=== PATIENT | female | born 1950 | race African-American/Black ===

== ENCOUNTER → 2016-05-24 | Outpatient (CLI) | payer OTHER ==
[~2016-05-24] MED LIST: ALBUTEROL2.5 MG/3 M INH; AMITRIPTYLINE H25 M2 PO; ASPIRIN81 M2 PO; CYMBALTA60 MG PO; HYDRALAZINE HC100 MG PO; JENTADUETO 2.51 EACH PO; LANTUS SOL100 UNIT/1 SQ; LASIX 40 MG TAB40 M2 PO; LIPITOR40 MG PO; LISINOPRIL40 MG PO; NEURONTIN 300300 M1 PO; SYMBICORT160 MCG/4. INH; VENTOLIN HFA 1818 GM INH; VICTOZA0.6 MG/0.1 SUBQ
== END ==
LOC: CAT 05-13 14:38
DX: J84.10 Pulmonary fibrosis, unspecified (principal); R91.1 Solitary pulmonary nodule

== ENCOUNTER → 2016-09-18 | Outpatient (CLI) | payer OTHER | LOC: HYPER 07:05 | DX: E11.622 Type 2 diabetes mellitus with other skin ulcer (principal); L97.811 Non-pressure chronic ulcer of other part of right lower leg limited to breakdown of skin; I87.311 Chronic venous hypertension (idiopathic) with ulcer of right lower extremity; I25.10 Atherosclerotic heart disease of native coronary artery without angina pectoris; E11.319 Type 2 diabetes mellitus with unspecified diabetic retinopathy without macular edema; J45.909 Unspecified asthma, uncomplicated; I11.0 Hypertensive heart disease with heart failure; I50.9 Heart failure, unspecified; E78.5 Hyperlipidemia, unspecified; I25.2 Old myocardial infarction; F32.9 Major depressive disorder, single episode, unspecified; F41.9 Anxiety disorder, unspecified; E11.51 Type 2 diabetes mellitus with diabetic peripheral angiopathy without gangrene; Z87.891 Personal history of nicotine dependence; Z72.89 Other problems related to lifestyle; Z95.1 Presence of aortocoronary bypass graft ==

== ENCOUNTER → 2016-10-17 | Outpatient (CLI) | payer OTHER | LOC: HYPER 07:00 | DX: E11.622 Type 2 diabetes mellitus with other skin ulcer (principal); I87.311 Chronic venous hypertension (idiopathic) with ulcer of right lower extremity; L97.811 Non-pressure chronic ulcer of other part of right lower leg limited to breakdown of skin; I25.10 Atherosclerotic heart disease of native coronary artery without angina pectoris; I11.0 Hypertensive heart disease with heart failure; I50.9 Heart failure, unspecified; J45.909 Unspecified asthma, uncomplicated; E78.5 Hyperlipidemia, unspecified; I25.2 Old myocardial infarction; E11.51 Type 2 diabetes mellitus with diabetic peripheral angiopathy without gangrene; Z95.1 Presence of aortocoronary bypass graft; Z87.891 Personal history of nicotine dependence; Z72.89 Other problems related to lifestyle ==

== ENCOUNTER 2017-04-13 08:36 | Emergency (ER) | payer OTHER ==
[~2017-04-13] VITALS: Ht 180.3 cm; Wt 113.4 kg
--- NOTE | ~2017-04-13 | EKG ---
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: [facility] : 1950 Requested By: Derek Holloway Order Number: [id number] MD: Jose L Miramontes Measurements Intervals [place] Rate: 65 P: -4 VA: 146 QRS: -7 QRSD: 108 T: 73 QT: 461 QTc: 480 Interpretive Statements Sinus rhythm Incomplete left bundle branch block Compared to ECG 12/28/2016 11:38:44 Left bundle-branch block now present T-wave abnormality no longer present Electronically Signed On 04-13-2017 10:25:57 CELL MAKER by Jose L Miramontes [email or web address] <ELECTRONICALLY SIGNED> By: Jose L Miramontes MD 04/13/17 1025 5 5 Jose L Miramontes MD /[facility]
[~2017-04-13 08:36] MED LIST changes: +LOPRESSOR50 PO; +NORCO 5-325 TA1 EACH PO
[2017-04-13 09:18] LABS: ABSOLUTE NEUTROPHILS 2.3 thou/uL (1.4-8.2); BASOPHILS 1.1 % (0.0-2.0); EOSINOPHILS 4.6 % (0.0-3.0); HEMATOCRIT 36.8 % (37.0-47.0); HEMOGLOBIN 12.2 gm/dL (12.0-15.0); LYMPHOCYTES 38.2 % (24.0-44.0); MCH 28.1 pg (26.0-34.0); MCHC 33.1 g/dL (28.0-37.0); MCV 84.7 fL (80.0-100.0); MONOCYTES 10.5 % (1.0-8.0); PLATELET COUNT 226 thou/uL (150-400); POLYS 45.6 % (36.0-66.0); RBC 4.34 mil/uL (4.20-5.00); RDW 14.1 % (10.5-14.5)
[2017-04-13 09:27] LABS: CALCIUM 9.1 mg/dL (8.5-10.1); CREATININE 1.1 mg/dL (0.6-1.0); POTASSIUM 4.6 mmol/L (3.5-5.1)
[2017-04-13 11:03] LABS: URINE BILIRUBIN NEGATIVE (Negative); URINE BLOOD 1+ (Negative); URINE CLARITY CLEAR; URINE COLOR YELLOW; URINE GLUCOSE-RANDOM* NEGATIVE (Negative); URINE KETONES NEGATIVE (Negative); URINE LEUKOCYTES-REFLEX NEGATIVE (Negative); URINE NITRITE-REFLEX NEGATIVE (Negative); URINE PROTEIN (DIPSTICK) 2+ (Negative); URINE UROBILINOGEN 0.2 E.U./dl (0.2-1.0)
[2017-04-13] MEDS ORDERED: OSELB75 PO (11:13)
[2017-04-13] MEDS ORDERED: PROMETHAZINE/C118 ML PO (11:13)
[2017-04-13 11:26] LABS: CASTS None Seen /LPF (None Seen); CRYSTALS None Seen /LPF (None Seen); SQUAMOUS 0-3 Few /LPF (0-3); URINE RBC 0-2 Rare /HPF (0-2); URINE WBC-REFLEX 0-5 Rare /HPF (0-5)
[2017-04-13 11:27] LABS: BACTERIA-REFLEX 1-9 Few /HPF (None Seen)
[2017-04-13 11:41] VITALS: BP 159/74
== END 2017-04-13 11:43 | disposition home or self-care (01) ==
LOC: ER 08:36
PROVIDERS: Emergency Medicine
DX: J11.1 Influenza due to unidentified influenza virus with other respiratory manifestations (principal); I10 Essential (primary) hypertension; E11.9 Type 2 diabetes mellitus without complications; E78.5 Hyperlipidemia, unspecified; J45.909 Unspecified asthma, uncomplicated; I25.2 Old myocardial infarction; Z88.0 Allergy status to penicillin

== ENCOUNTER 2018-02-04 17:34 | Inpatient (IN) | payer OTHER ==
[~2018-02-04] VITALS: Ht 177.8 cm; Wt 104.3 kg
--- NOTE | ~2018-02-04 | HC ---
[facility] [address] CONSULTATION Name: KILEYJUSTUS D Room #: 456-[facility] IN ..#: [id number] Admission: 02/04/18 Attend Phys: Daniel Huizar MD Discharge: Date of : 54 Report #: [id number] THIS REPORT FOR: //name// CC: Gavin Huizar DATE OF SERVICE: 02/05/2018 INFECTIOUS DISEASE CONSULTATION REASON FOR CONSULTATION: Febrile illness, PENICILLIN allergy, group A streptococcal infection. HISTORY OF PRESENT ILLNESS: A 67-year-old woman admitted through the Emergency Room with cough and upper airway congestion, epistaxis, lethargy and low grade fevers as well as joint aches and pains. Family members in the household affected with similar symptoms. Her initial workup revealed negative rapid influenza A and B positive group A streptococcal on pharyngeal swab. PAST MEDICAL HISTORY 1. Myocardial infarction. 2. Coronary artery bypass grafting. 3. Hypertension. 4. Diabetes mellitus. 5. Peripheral neuropathy. 6. Bronchial asthma. 7. Depression. DRUG ALLERGIES: PENICILLIN. MEDICATIONS: The patient is currently on treatment with p.r.n. ondansetron, acetaminophen, amitriptyline, Lactobacillus acidophilus, metoprolol, atorvastatin, insulin glargine, duloxetine, clindamycin 300 mg p.o. t.i.d., gabapentin, hydralazine, p.r.n. glucose glucagon and Tamiflu. She is also on insulin lispro per sliding scale. SOCIAL HISTORY: See H and P, old records. FAMILY HISTORY: See H and P, old records. REVIEW OF SYSTEMS: As above, and see H and P and Emergency Room records. PHYSICAL EXAMINATION: GENERAL: Well developed, not toxic looking woman. VITAL SIGNS: Temperature of 102.1 on 02/04/2018 down to 98.3 today, pulse 102 [facility] [address] [place] [address] CONSULTATION Name: JUSTUS CAO Room #: 456-P [facility] IN [facility]#: [id number] Admission: 02/04/18 Attend Phys: Daniel Huizar MD Discharge: Date of : 54 Report #: [id number] on admission, down to 88 today; respirations 21, BP 125/68. Height 5 feet 10 inches, weight 230 pounds. HEENMT: Pupils reactive. Conjunctivae normal. Pharynx revealed no exudates and follicular hyperplasia. Mouth: Good hygiene oral dentition. NECK: Supple, with no polyp or adenopathy. No tender adenopathy, though she relates it was tender before. Obviously, she is having sore throat. LUNGS: Clear to auscultation. HEART: S1, S2. No gallop or murmur. ABDOMEN: Soft, no masses or megaly. PELVIC AND RECTAL: Deferred. EXTREMITIES: Normal. LABORATORY DATA: On admission, BUN 28, creatinine 1.6, the creatinine dropped to 1.4 today and the BUN edi to 42. On admission, the glucose was 420 and 92 today. Alkaline phosphatase elevated at 199 u/mL. Albumin low at 2.3 mg/dL. I ordered a CRP, this is significantly elevated at 195 mg/dL. WBC 11,200 on admission, dropped to 7000 today, hemoglobin 13.5 on admission, dropped to 11.6 today. ESR 80. I ordered an upper viral respiratory panel by PCR. This is pending at the time of this dictation. Urinalysis revealed some microscopic hematuria, glycosuria and ketonuria. The arterial blood gases reveal hypoxemia with pO2 of 56 on room air. The O2 saturation is 89.8%. MICROBIOLOGY DATA: Blood cultures negative. Rapid strep group A positive and upper respiratory swab for influenza A and B negative. RADIOLOGY EVALUATION: A CT scan of the abdomen and pelvis revealed questionable nonobstructive kidney stone, otherwise negative. ASSESSMENT: 1. Influenza like syndrome. 2. Positive antigen for group A Streptococcus, question significance, suspect colonization. 3. PENICILLIN allergy. 4. Remote history of coronary artery bypass grafting. 5. Diabetes mellitus. 6. Chronic kidney disease. 7. Hypoxemia, possibly secondary to history of bronchial asthma, question underlying chronic obstructive pulmonary disease unlikely. RECOMMENDATIONS: We will continue Cleocin 300 mg p.o. t.i.d., though I doubt the patient has streptococcal pharyngitis. Most likely, she has an influenza-like viral upper respiratory infection and I will start Tamiflu 75 mg p.o. daily. The patient may be discharged at Dr. Huizar's timing. [address] [address] CONSULTATION Name: KILEYJUSTUS D Room #: 456-P [facility] IN [facility]#: [id number] Admission: 02/04/18 Attend Phys: Daniel Huizar MD Discharge: Date of : 54 Report #: [id number] Huizar, thank you for requesting my suggestions. By: [id number] Bishop Miramontes MD /ez
--- NOTE | ~2018-02-04 | EKG ---
[address] [address] ELECTROCARDIOGRAM REPORT Name: KILEYJUSTUS D Room #: 456-P ADM IN M.R.#: [id number] Admission: 02/04/18 Attend Phys: Daniel Huizar MD Discharge: Date of : 54 Report #: [id number] THIS REPORT FOR: //name// [facility] ED Test Date: 2018-02-04 Test Time: 18:26:21 Pat Name: JUSTUS CAO Department: Room: [facility] Gender: F Song Writer: JUAN PABLO : 1950 Requested By: Maude Mendoza Order Number: [id number] MD: Jose L Miramontes Measurements Intervals [place] Rate: 99 P: 1 MT: 132 QRS: 8 QRSD: 97 T: 227 QT: 327 QTc: 420 Interpretive Statements Sinus rhythm Compared to ECG 04/13/2017 09:26:39 Left bundle-branch block no longer present Electronically Signed On 02-06-2018 15:04:44 FIVE PIECE EXPANSION MAKER HAND by JoseL Miramontes [email or web address] <ELECTRONICALLY SIGNED> By: Jose L Miramontes MD 02/06/18 1504 25 25 Jose L Miramontes MD /[place]
--- NOTE | ~2018-02-04 | 2DMMODE ---
[facility] [place] [facility] [address] [place] [address] 2 D/M-MODE ECHOCARDIOGRAM Name: KILEYANDERSONJUSTUS D Room #: 456-P [facility] IN ..#: [id number] Admission: 02/04/18 Attend Phys: Daniel Huizar, Discharge: Date of : 54 Date of Service: 02/05/18 1448 Report #: [id number] THIS REPORT FOR: //name// APPROVED REPORT Study performed: 02/05/2018 14:04:08 EXAM: Comprehensive 2D, Doppler, and color-flow Echocardiogram Patient Location: Echo lab Room #: [facility] Status: routine BSA: 2.21 HR: 75 bpm BP: 107/61 mmHg Rhythm: NSR Other Information Study Quality: Adequate Indications Short of breath, chest pains. Hx: MO's CABG, stents, DM, HTN. 2D Dimensions RVDd: 36.39 mm IVSd: 11.17 (7-11mm) LVOT Diam: 21.25 (18-24mm) LVDd: 53.44 mm PWd: 11.07 (7-11mm) Ascending Ao: 34.48 (22-36mm) LVDs: 39.63 (25-40mm) Aortic Root: 34.59 mm Volumes Left Atrial Volume (Systole) Single Plane 4CH: 35.29 mL Single Plane 2CH: 46.70 mL LA ESV Index: 21.00 mL/m2 Aortic Valve AoV Peak Doroteo.: 1.28 m/s AO Peak Gr.: 6.51 mmHg LVOT Max P.96 mmHg LVOT Max V: 1.00 m/s VINEET Vmax: 2.77 cm2 Mitral Valve E/A Ratio: 0.8 MV Decel. Time: 251.25 ms MV E Max Doroteo.: 0.61 m/s [facility] [place] [facility] [employer] [place] [address] 2 D/M-MODE ECHOCARDIOGRAM Name: JUSTUS CAO Room #: 456-P [facility] IN .R.#: [id number] Admission: 02/04/18 Attend Phys: Daniel Huizar, Discharge: Date of : 54 Date of Service: 02/05/18 1448 Report #: [id number] MV A Doroteo.: 0.80 m/s MV PHT: 72.86 ms IVRT: 96.89 ms Pulmonary Valve PV Peak Doroteo.: 0.88 m/s PV Peak Gr.: 3.09 mmHg Pulmonary Vein P Vein S: 0.52 m/s P Vein A: 0.38 m/s P Vein D: 0.39 m/s P Vein A Dur.: 110.7 msec P Vein S/D Ratio: 1.33 Tricuspid Valve TR Peak Doroteo.: 2.15 m/s RAP Estimate: 5.00 mmHg TR Peak Gr.: 18.43 mmHg PA Pressure: 23.00 mmHg Left Ventricle The left ventricle is normal size. There is normal LV segmental wall motion. There is normal left ventricular wall thickness. Left ventricular systolic function is normal. LVEF is 55-60%. Mild diastolic dysfunction is present (impaired relaxation pattern). Right Ventricle The right ventricle is normal size. The right ventricular systolic function is normal. Atria The left atrium size is normal. The right atrium size is normal. Aortic Valve Aortic valve leaflets are mildly thickened with a focal calcified area, cannot exclude vegetation although degenerative changes likely. clinical correlation suggested Trace aortic regurgitation. There is no aortic valvular stenosis. Mitral Valve The mitral valve is normal in structure. Mild mitral annular calcification. Trace to mild mitral regurgitation. Tricuspid Valve The tricuspid valve is normal in structure. Trace tricuspid regurgitation. Estimated PAP is 20-25mmHg. [place] [address] [place] [address] 2 D/M-MODE ECHOCARDIOGRAM Name: JUSTUS CAO Room #: 456-P [facility] IN [facility]#: [id number] Admission: 02/04/18 Attend Phys: Daniel Huizar, Discharge: Date of : 54 Date of Service: 02/05/18 1448 Report #: [id number] Pulmonic Valve The pulmonary valve is normal in structure. Mild pulmonic regurgitation. Great Vessels The aortic root is normal in size. The ascending aorta is normal in size. IVC is normal in size and collapses >50% with inspiration. Pericardium There is no pericardial effusion. <Conclusion> The left ventricle is normal size. LVEF is 55-60%. Aortic valve leaflets are mildly thickened with a focal calcified area, cannot exclude vegetation although degenerative changes likely. clinical correlation suggested Trace aortic regurgitation. The mitral valve is normal in structure. Mild mitral annular calcification. Trace to mild mitral regurgitation. The tricuspid valve is normal in structure. Trace tricuspid regurgitation. Estimated PAP is 20-25mmHg. The pulmonary valve is normal in structure. Mild pulmonic regurgitation. There is no pericardial effusion. <ELECTRONICALLY SIGNED> By: Nathen Gonzalez MD 02/05/18 1448 1448 1448 Nathen Gonzalez MD /INF
--- NOTE | ~2018-02-04 | EKG ---
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 : 1950 Requested By: Maude Mendoza Order Number: [id number] MD: Jose L Miramontes Measurements Intervals [place] Rate: 95 P: 1 WA: 134 QRS: 1 QRSD: 102 T: 32 QT: 406 QTc: 511 Interpretive Statements Sinus rhythm Borderline repolarization abnormality Compared to ECG 04/13/2017 09:26:39 Left bundle-branch block no longer present Electronically Signed On 02-06-2018 15:06:11 AIRCRAFT DESIGNER by Jose L Miramontes [email or web address] <ELECTRONICALLY SIGNED> By: Jose L Miramontes MD 02/06/18 1506 23 23 Jose L Miramontes MD /[facility]
[~2018-02-04 17:34] MED LIST changes: +OSELB75 PO; +PROMETHAZINE/C118 ML PO
[2018-02-04 17:37] VITALS: BP 129/77
[2018-02-04 18:29] LABS: BE(vivo) 0.2 mmol/L (-2 to +3); HCO3 24.5 mmol/L (22.0-26.0); PCO2 38.8 mmHg (35.0-45.0); PO2 56.1 mmHg (80.0-100.0); pH 7.419 (7.360-7.450); sO2 89.8 % (92.0-98.0)
[2018-02-04 18:46] LABS: ABSOLUTE NEUTROPHILS 9.5 thou/uL (1.4-8.2); BASOPHILS 0.8 % (0.0-2.0); EOSINOPHILS 0.5 % (0.0-3.0); HEMATOCRIT 39.3 % (37.0-47.0); HEMOGLOBIN 13.5 gm/dL (12.0-15.0); LYMPHOCYTES 7.4 % (24.0-44.0); MCH 28.5 pg (26.0-34.0); MCHC 34.3 g/dL (28.0-37.0); MCV 83.1 fL (80.0-100.0); MONOCYTES 6.4 % (1.0-8.0); PLATELET COUNT 217 thou/uL (150-400); POLYS 84.9 % (36.0-66.0); RBC 4.73 mil/uL (4.20-5.00); RDW 13.2 % (10.5-14.5); WBC 11.2 thou/uL (4.0-11.0)
[2018-02-04 19:04] LABS: ANION GAP 11 mmol/L (7-16); BUN 28 mg/dL (7-18); CALCIUM 9.1 mg/dL (8.5-10.1); CHLORIDE 95 mmol/L (98-107); CO2 25 mmol/L (21-32); CREATININE 1.6 mg/dL (0.6-1.0); GLUCOSE 420 mg/dL (74-106); POTASSIUM 5.2 mmol/L (3.5-5.1); SODIUM 131 mmol/L (136-145)
[2018-02-04 19:09] LABS: ALBUMIN 2.3 g/dL (3.4-5.0); SGOT 41 U/L (15-37); SGPT 33 U/L (30-65); TOTAL BILIRUBIN 0.6 mg/dL (<0.1-1.0); TOTAL PROTEIN 7.6 g/dL (6.4-8.2); TROPONIN-I <0.06 ng/mL (<0.06)
[2018-02-04 20:17] LABS: ICTOTEST (BILI CONFIRMATORY) Negative (Negative); URINE BILIRUBIN NEGATIVE (Negative); URINE BLOOD 3+ (Negative); URINE CLARITY CLEAR; URINE COLOR YELLOW; URINE GLUCOSE-RANDOM* 3+ (Negative); URINE KETONES 1+ (Negative); URINE LEUKOCYTES-REFLEX NEGATIVE (Negative); URINE NITRITE-REFLEX NEGATIVE (Negative); URINE PROTEIN (DIPSTICK) 3+ (Negative); URINE SPECIFIC GRAVITY > 1.030 (1.005-1.035); URINE UROBILINOGEN 0.2 E.U./dl (0.2-1.0)
[2018-02-04 20:25] LABS: BACTERIA-REFLEX 1-9 Few /HPF (None Seen); CASTS None Seen /LPF (None Seen); CRYSTALS None Seen /LPF (None Seen); SQUAMOUS 0-3 Few /LPF (0-3); URINE RBC 3-10 Few /HPF (0-2)
[2018-02-04 20:26] LABS: URINE WBC-REFLEX 0-5 Rare /HPF (0-5)
[2018-02-04 21:16] VITALS: BP 163/77
[2018-02-04] MEDS ORDERED: CLEOCIN HCL150 MG PO (21:19)
[2018-02-04 22:00] VITALS: BP 136/65
[2018-02-04 22:51] VITALS: BP 130/66
[2018-02-05 00:42] VITALS: BP 157/80
[2018-02-05 04:50] LABS: CALCIUM 8.6 mg/dL (8.5-10.1); CREATININE 1.6 mg/dL (0.6-1.0)
[2018-02-05 04:51] LABS: POTASSIUM 3.8 mmol/L (3.5-5.1)
[2018-02-05 05:40] VITALS: BP 128/69
[2018-02-05 08:20] VITALS: BP 107/61
[2018-02-05 16:27] VITALS: BP 130/70
[2018-02-05 20:08] LABS: GLYCOHEMOGLOBIN (HGB A1C) 12.4 % (4.8-5.6)
[2018-02-05 20:10] VITALS: BP 103/63
[2018-02-06 04:47] VITALS: BP 136/80
[2018-02-06 05:35] LABS: CHOLESTEROL 289 mg/dL (<200); HDL CHOLESTEROL 28 mg/dL (>40); LDL CHOLESTEROL 215 mg/dL (<100); TC:HDL 10.3 Ratio (Not establshd); TRIGLYCERIDE 232 mg/dL (<150); VLDL 46 mg/dL (<40)
[2018-02-06 05:38] LABS: SERUM ASSESSMENT Clear
[2018-02-06 07:50] VITALS: BP 125/68
[2018-02-06 09:18] LABS: HEMATOCRIT 34.6 % (37.0-47.0); HEMOGLOBIN 11.6 gm/dL (12.0-15.0); MCH 28.2 pg (26.0-34.0); MCHC 33.4 g/dL (28.0-37.0); MCV 84.2 fL (80.0-100.0); RBC 4.1 mil/uL (4.20-5.00); RDW 13.6 % (10.5-14.5)
[2018-02-06 09:28] LABS: CALCIUM 8.7 mg/dL (8.5-10.1); CREATININE 1.4 mg/dL (0.6-1.0); MAGNESIUM 2.2 mg/dL (1.8-2.4); POTASSIUM 3.9 mmol/L (3.5-5.1)
[2018-02-06] MEDS ORDERED: LIPITOR40 MG PO (15:36)
[2018-02-06] MEDS ORDERED: CLEOCIN HCL150 MG PO (15:36)
[2018-02-06] MEDS ORDERED: HYDRALAZINE HC100 MG PO (15:36)
[2018-02-06] MEDS ORDERED: NEURONTIN 300300 M1 PO (15:36)
[2018-02-06] MEDS ORDERED: PROBIOTIC1 EAC1 PO (15:36)
[2018-02-06] MEDS ORDERED: LOPRESSOR50 PO (15:36)
[2018-02-06] MEDS ORDERED: OSELB75 PO (15:36)
[2018-02-06] MEDS ORDERED: LISINOPRIL40 MG PO (15:36)
[2018-02-06] MEDS ORDERED: LIPITOR80 MG PO (16:52)
[2018-02-06 17:22] VITALS: BP 125/68
[2018-02-09 02:07] LABS: ADENOVIRUS Negative (Negative); INFLUENZA A Negative (Negative); INFLUENZA B Negative (Negative); METAPNEUMOVIRUS Negative (Negative); PARAINFLUENZA 1 Negative (Negative); PARAINFLUENZA 2 Negative (Negative); PARAINFLUENZA 3 Negative (Negative); RHINOVIRUS Negative (Negative); RSV A Negative (Negative); RSV B Negative (Negative)
== END 2018-02-06 21:00 | disposition home or self-care (01) | DRG 871 ==
LOC: ER 17:34 → 4W 21:38 → EROBS 21:38 → 4W 22:06 → ENTRNSPT 02-05 10:26 → 4W 02-06 21:00
PROVIDERS: Internal Medicine; Internal Medicine Infectious Disease; Nurse Practitioner; Nurse Practitioner Acute Care; Physician Assistant
DX: A41.9 Sepsis, unspecified organism (principal); E43 Unspecified severe protein-calorie malnutrition; N17.9 Acute kidney failure, unspecified; J02.0 Streptococcal pharyngitis; E11.42 Type 2 diabetes mellitus with diabetic polyneuropathy; E78.5 Hyperlipidemia, unspecified; J45.909 Unspecified asthma, uncomplicated; F32.9 Major depressive disorder, single episode, unspecified; I25.10 Atherosclerotic heart disease of native coronary artery without angina pectoris; D64.9 Anemia, unspecified; E11.22 Type 2 diabetes mellitus with diabetic chronic kidney disease; I12.9 Hypertensive chronic kidney disease with stage 1 through stage 4 chronic kidney disease, or unspecified chronic kidney disease; N18.3 Chronic kidney disease, stage 3 (moderate); G47.33 Obstructive sleep apnea (adult) (pediatric); E11.65 Type 2 diabetes mellitus with hyperglycemia; Z82.49 Family history of ischemic heart disease and other diseases of the circulatory system; I25.2 Old myocardial infarction; Z88.0 Allergy status to penicillin; Z95.1 Presence of aortocoronary bypass graft; Z83.6 Family history of other diseases of the respiratory system; Z95.5 Presence of coronary angioplasty implant and graft; Z83.3 Family history of diabetes mellitus; Z79.899 Other long term (current) drug therapy; Z68.33 Body mass index [BMI] 33.0-33.9, adult; Z23 Encounter for immunization
CPT/HCPCS: 10045

== ENCOUNTER → 2018-05-08 | Outpatient (CLI) | payer OTHER ==
[~2018-05-08] MED LIST changes: +CLEOCIN HCL150 MG PO; +LIPITOR80 MG PO; +PROBIOTIC1 EAC1 PO
[2018-05-08 09:14] LABS: CREATININE 1.2 mg/dL (0.6-1.0)
== END ==
LOC: CAT 08:36
PROVIDERS: Family Medicine
DX: K57.30 Diverticulosis of large intestine without perforation or abscess without bleeding (principal); K42.9 Umbilical hernia without obstruction or gangrene; I25.10 Atherosclerotic heart disease of native coronary artery without angina pectoris; R59.9 Enlarged lymph nodes, unspecified; Z90.49 Acquired absence of other specified parts of digestive tract; M51.36 Other intervertebral disc degeneration, lumbar region

== ENCOUNTER → 2018-05-28 | Outpatient (CLI) | payer OTHER | LOC: CAT 08:40 | PROVIDERS: Family Medicine | DX: R59.0 Localized enlarged lymph nodes (principal) ==

== ENCOUNTER → 2019-02-18 | Outpatient (CLI) | payer OTHER | LOC: SJCVC 10:49 | DX: I25.118 Atherosclerotic heart disease of native coronary artery with other forms of angina pectoris (principal); R94.31 Abnormal electrocardiogram [ECG] [EKG]; I10 Essential (primary) hypertension; E78.00 Pure hypercholesterolemia, unspecified; E11.9 Type 2 diabetes mellitus without complications; J44.9 Chronic obstructive pulmonary disease, unspecified; I25.2 Old myocardial infarction; Z88.0 Allergy status to penicillin; Z88.2 Allergy status to sulfonamides; Z79.899 Other long term (current) drug therapy; Z90.49 Acquired absence of other specified parts of digestive tract; Z95.1 Presence of aortocoronary bypass graft; Z79.4 Long term (current) use of insulin; Z87.891 Personal history of nicotine dependence; Z79.82 Long term (current) use of aspirin ==

== ENCOUNTER → 2019-08-09 | Outpatient (CLI) | payer OTHER | LOC: SJCVC 11:26 | PROVIDERS: ATTEND Internal Medicine Cardiovascular Disease | DX: R94.31 Abnormal electrocardiogram [ECG] [EKG] (principal); I25.118 Atherosclerotic heart disease of native coronary artery with other forms of angina pectoris; I10 Essential (primary) hypertension; E78.00 Pure hypercholesterolemia, unspecified ==

== ENCOUNTER 2019-09-05 17:50 | Inpatient (IN) | payer OTHER ==
[~2019-09-05] VITALS: Ht 177.8 cm; Wt 97.1 kg
--- NOTE | ~2019-09-05 | EMS ---
[facility] [address] [place] [address] EMS Patient Care Report Name: JUSTUS CAO Room #: 459-P ADM IN M.R.#: [id number] Admission: 09/05/19 Attend Phys: Avril House MD Discharge: Date of : 54 Report #: [id number] THIS REPORT FOR: //name// Report Transmitted: 09/07/2019 03:12 EMS Care Summary [facility] Incident [id number] @ 09/05/2019 16:54 Incident Location [address] [place] [address] Patient JUSTUS CAO Female, 68 Years 1950 Patient Address [address] [place] [address] Patient History Congestive Heart Failure (CHF),Diabetes,Myocardial Infarction ([place]), Patient Allergies No known allergies, Patient Medications Hydralazine, Lisinopril, Chief Complaint Injury to L ankle Disposition Transported No Lights/[place] Reason Unconscious/Fainting Transported To [facility] Narrative S51 dispatched for fainting. Arrived on scene to find pt laying prone on the floor, awake and alert. Pt stated she was walking to her refrigerator to get [facility] [address] [place] [address] EMS Patient Care Report Name: JUSTUS CAO Room #: 459-P ADM IN M.R.#: [id number] Admission: 09/05/19 Attend Phys: Avril House MD Discharge: Date of : 54 Report #: [id number] something to drink when she became light-headed and suffered a syncopal episode. Pt stated she began suffering these types of syncopal episodes approximately 6 weeks prior to our interaction. Pt denied head or neck pain, and denied use of blood thinning medication. Pt complained of pain to her L ankle. Visual assessment revealed swelling and deformity of ankle, sensation and pulse were intact at the time of assessment. Pt was rolled to a seated position and moved to the stretcher via extremity lift. Once on the stretcher pt was secured via seat belts. Pt's ankle was placed in a position of comfort and supported with extra linens. Once in the ambulance pt's vitals were assessed (see separate annotations), a 20G IV was successfully placed in pt's R hand (patency ensured via NS, secured), 50 mcg of fentanyl was administered (initial pain rating 7/10), a NS bolus was initiated, and transport was begun. Pt denied additional analgesic administration enroute. Pt was monitored for the duration of transport and arrived at the destination facility with a slight reduction in pain (6/10), but with no other significant changes to her condition. Upon arrival at the destination facility pt was transferred from the stretcher to facility bed via sheet draw, pt care report was given to facility staff, attending requested administration of additional 50 mcg of fentanyl prior to wasting medication (medication was provided then remained of vial was wasted), and pt care was turned over. All times are estimations. EMTP [id number]. Initial Vitals @17:39P: 82, @17:21P: 75,R: 20,BP: 84/54,GCS: 15,SpO2: 98,Revised Trauma: 11, @17:35P: 71,R: 20,BP: 95/60,GCS: 15,SpO2: 99,Revised Trauma: 12, @17:23P: 77,R: 20,BP: 83/52,GCS: 15,SpO2: 97,Revised Trauma: 11, @17:28P: 70,R: 20,BP: 84/47,GCS: 15,SpO2: 95,Revised Trauma: 11, Assessments @17:05MENTAL:Person Oriented,Time Oriented,Place Oriented,Event Oriented,SKIN:HEENT:Head/Face: No Abnormalities,Neck/Airway: No Abnormalities,LUNG SOUNDS:General: No Abnormalities,ABDOMEN:General: No Abnormalities,PELVIS//GI:EXTREMITIES:Left Leg: Other,Left Arm: No Abnormalities,Right Arm: No Abnormalities,Right Leg: No Abnormalities,PULSE:NEURO:No Abnormalities,@17:40MENTAL:Event Oriented,Place Oriented,Time Oriented,Person Oriented,SKIN:HEENT:LUNG SOUNDS:ABDOMEN:PELVIS//GI:EXTREMITIES:PULSE:NEURO: Impression Injury Procedures @17:20Saline Lock 10cc (20 ga) Site: Hand-RightSucceeded@17:21Fentanyl - 50 Micrograms (mcg) - Intravenous (IV)@17:22Normal Saline (.9% NaCl) 500cc () Site: Hand-RightSucceeded [address] [address] EMS Patient Care Report Name: JUSTUS CAO Room #: 459-P ADM IN M.R.#: [id number] Admission: 09/05/19 Attend Phys: Avril House MD Discharge: Date of : 54 Report #: [id number] Timeline 16:51,Call Received 16:51,Psap Call 16:54,Dispatched 16:56,En Route 17:00,Initial Responder On Scene 17:00,On Scene 17:04,At Patient 17:20,Saline Lock 10cc 20 ga Site: Hand-Right,Succeeded, 17:21,Fentanyl - 50 Micrograms (mcg) - Intravenous (IV), 17:21,BP: 84/54 M,PULSE: 75,RR: 20 R,SPO2: 98 Ox,ETCO2: ,BG: ,PAIN: ,GCS: 15, 17:22,Normal Saline (.9% NaCl) 500cc Site: Hand-Right,Succeeded, 17:23,BP: 83/52 M,PULSE: 77,RR: 20 R,SPO2: 97 Ox,ETCO2: ,BG: ,PAIN: ,GCS: 15, 17:23,Depart Scene 17:28,BP: 84/47 M,PULSE: 70,RR: 20 R,SPO2: 95 Ox,ETCO2: ,BG: ,PAIN: ,GCS: 15, 17:35,BP: 95/60 M,PULSE: 71,RR: 20 R,SPO2: 99 Ox,ETCO2: ,BG: ,PAIN: ,GCS: 15, 17:39,BP: / M,PULSE: 82,RR: R,SPO2: Ox,ETCO2: ,BG: ,PAIN: ,GCS: , 17:40,At Destination 18:23,Call Closed Disclaimer v1.1 Copyright 2020 [email or web address] This EMS Care Summary contains data elements from the applicable legal record (which may be displayed differently). It is designed to provide pertinent information for the following purposes: continuity of care, clinical quality, and state data reporting. The complete legal record is available to ED staff and administrators of the receiving hospital in ES's Patient Tracker. All data is provided "as is."
[2019-09-05 17:51] VITALS: BP 103/53
[2019-09-05 19:09] LABS: ABSOLUTE NEUTROPHILS 2.7 thou/uL (1.4-8.2); EOSINOPHILS 1.8 % (0.0-3.0); HEMATOCRIT 35.3 % (37.0-47.0); HEMOGLOBIN 11.6 gm/dL (12.0-15.0); LYMPHOCYTES 29.1 % (24.0-44.0); MCH 28.4 pg (26.0-34.0); MCHC 32.8 g/dL (28.0-37.0); MCV 86.5 fL (80.0-100.0); MONOCYTES 9.4 % (1.0-8.0); PLATELET COUNT 236 thou/uL (150-400); POLYS 58.7 % (36.0-66.0); RBC 4.08 mil/uL (4.20-5.00); RDW 14.1 % (10.5-14.5); WBC 4.6 thou/uL (4.0-11.0)
[2019-09-05] MEDS ORDERED: CRESTOR40 MG PO (19:11)
[2019-09-05] MEDS ORDERED: TOUJEO SOL300 UNIT/1 SUBQ (19:13)
[2019-09-05 19:19] LABS: ANION GAP 5 mmol/L (7-16); BUN 39 mg/dL (7-18); CALCIUM 8.5 mg/dL (8.5-10.1); CHLORIDE 103 mmol/L (98-107); CO2 28 mmol/L (21-32); CREATININE 1.5 mg/dL (0.6-1.0); GLUCOSE 143 mg/dL (74-106); POTASSIUM 4.8 mmol/L (3.5-5.1); SODIUM 136 mmol/L (136-145)
[2019-09-05 19:28] LABS: TROPONIN-I <0.06 ng/mL (<0.06)
[2019-09-05] MEDS ORDERED: OZEMPIC0.25 MG/0. SUBQ (19:39)
[2019-09-05] MEDS ORDERED: HUMALOG100 UNIT/1 SUBQ (19:40)
[2019-09-05 21:03] VITALS: BP 136/70
[2019-09-05 21:20] VITALS: BP 122/53
[2019-09-05 21:45] VITALS: BP 144/67
[2019-09-06] VITALS (13 sets, daily range): BP systolic 124–162; BP diastolic 58–82
--- NOTE | 2019-09-06 02:50 | NUR ---
ADMITTED FROM ER UNDER 'S CARE. AXOX4. ADMITTED WITH S/P FALL WITH L ANKLE FX. PAIN MANAGED PER COMPUTATIONAL CHEMIST ORDER. VSS. KEPT NPO POST MN FOR SURGERY WITH ORTHO IN AM. NO S/S ACUTE DISTRESS NOTED OR REPORTED AT THIS TIME. WILL CONT TO MONITOR FOR ANY CHANGES IN CONDITION.
[2019-09-06 06:00] LABS: HEMATOCRIT 34.6 % (37.0-47.0); HEMOGLOBIN 11.4 gm/dL (12.0-15.0); MCH 28.7 pg (26.0-34.0); MCHC 32.8 g/dL (28.0-37.0); MCV 87.4 fL (80.0-100.0); RBC 3.96 mil/uL (4.20-5.00); RDW 14.5 % (10.5-14.5); WBC 6.1 thou/uL (4.0-11.0)
[2019-09-06 06:10] LABS: PROTIME 10.1 Seconds (9.3-11.4)
[2019-09-06 06:14] LABS: CALCIUM 8.6 mg/dL (8.5-10.1); CREATININE 1.8 mg/dL (0.6-1.0); MAGNESIUM 2.3 mg/dL (1.8-2.4); POTASSIUM 5.2 mmol/L (3.5-5.1)
--- NOTE | 2019-09-06 08:06 | EKG ---
[facility] [place] [place] [address] ELECTROCARDIOGRAM REPORT Name: JUSTUS CAO Room #: 459- ADM IN M.R.#: [id number] Admission: 09/05/19 Attend Phys: Avril House MD Discharge: Date of : 54 Report #: [id number] THIS REPORT FOR: cc: Gavin Owens James A. 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
--- NOTE | 2019-09-06 08:27 | NUR ---
PER CHART REVIEW, Pt TO GO TO OR TODAY. WILL NEED NEW ORDERS WITH UPDATED WB STATUS PRIOR TO PT EVAL.
--- NOTE | 2019-09-06 12:27 | 2DMMODE ---
[facility] [place] [address] 2 D/M-MODE ECHOCARDIOGRAM Name: JUSTUS CAO Room #: 459-P ADM IN M.R.#: [id number] Admission: 09/05/19 Attend Phys: Avril House MD Discharge: Date of : 54 Report #: [id number] THIS REPORT FOR: cc: Gavin Owens James A. DO Park, Jin S. MD ~ APPROVED REPORT Study performed: 09/06/2019 11:07:39 EXAM: Comprehensive 2D, Doppler, and color-flow Echocardiogram Patient Location: Bedside Room #: 459 Status: routine BSA: 2.15 HR: 68 bpm BP: 142/76 mmHg Rhythm: NSR Other Information Study Quality: Good Indications Pre-syncope. Hx: CABG, multiple stents, HTN, HLP, DM, COPD. 2D Dimensions RVDd: 40.38 mm IVSd: 11.00 (7-11mm) LVDd: 52.33 mm PWd: 11.15 (7-11mm) LVDs: 35.18 (25-40mm) Aortic Root: 32.78 mm Volumes Left Atrial Volume (Systole) Single Plane 4CH: 41.65 mL Single Plane 2CH: 55.41 mL LA ESV Index: 25.00 mL/m2 Aortic Valve AoV Peak Doroteo.: 1.76 m/s AO Peak Gr.: 12.37 mmHg LVOT Max P.44 mmHg LVOT Max V: 1.27 m/s [facility] [address] [place] [address] 2 D/M-MODE ECHOCARDIOGRAM Name: JUSTUS CAO Room #: 459 ADM IN M.R.#: [id number] Admission: 09/05/19 Attend Phys: Avril House MD Discharge: Date of : 54 Report #: [id number] Mitral Valve E/A Ratio: 0.7 MV Decel. Time: 336.03 ms MV E Max Doroteo.: 0.65 m/s MV A Doroteo.: 0.88 m/s MV PHT: 97.45 ms IVRT: 65.74 ms Pulmonary Valve PV Peak Doroteo.: 0.97 m/s PV Peak Gr.: 3.79 mmHg Pulmonary Vein P Vein S: 0.48 m/s P Vein D: 0.38 m/s P Vein S/D Ratio: 1.26 Tricuspid Valve RAP Estimate: 5.00 mmHg Left Ventricle The left ventricle is normal size. There is normal LV segmental wall motion. There is normal left ventricular wall thickness. Left ventricular systolic function is normal. LVEF is 60-65%. Mild diastolic dysfunction is present (impaired relaxation pattern). Right Ventricle The right ventricle is normal size. The right ventricular systolic function is normal. Atria The left atrium size is normal. The right atrium size is normal. Aortic Valve Aortic valve leaflets are mildly thickened with a focal calcified area. Degenerative changes likely. (No change from previous echo in 2018) Trace aortic regurgitation. There is no aortic valvular stenosis. Mitral Valve The mitral valve is normal in structure. Mild mitral annular calcification. Trace mitral regurgitation. No evidence of mitral valve stenosis. Tricuspid Valve [facility] [address] [place] [address] 2 D/M-MODE ECHOCARDIOGRAM Name: JUSTUS CAO Room #: 459-P ADM IN ..#: [id number] Admission: 09/05/19 Attend Phys: Avril House MD Discharge: Date of : 54 Report #: [id number] The tricuspid valve is normal in structure. There is no tricuspid valve regurgitation noted. Unable to assess PA pressure. Pulmonic Valve The pulmonary valve is normal in structure. Trace pulmonic regurgitation. Great Vessels The aortic root is normal in size. The ascending aorta is normal in size. IVC is normal in size and collapses >50% with inspiration. Pericardium There is no pericardial effusion. <Conclusion> The left ventricle is normal size. There is normal left ventricular wall thickness. Left ventricular systolic function is normal. Mild diastolic dysfunction is present (impaired relaxation pattern). The right ventricle is normal size. The left atrium size is normal. Aortic valve leaflets are mildly thickened with a focal calcified area. Mild mitral annular calcification. Trace mitral regurgitation. <ELECTRONICALLY SIGNED> By: Wade Louise MD 09/06/19 1227 26 26 Wade Louise MD /INF
[2019-09-06 12:55] LABS: URINE BILIRUBIN NEGATIVE (Negative); URINE BLOOD 1+ (Negative); URINE CLARITY CLEAR; URINE COLOR YELLOW; URINE GLUCOSE-RANDOM* NEGATIVE (Negative); URINE KETONES NEGATIVE (Negative); URINE LEUKOCYTES NEGATIVE (Negative); URINE NITRITE NEGATIVE (Negative); URINE PROTEIN (DIPSTICK) 3+ (Negative); URINE SPECIFIC GRAVITY 1.025 (1.005-1.035); URINE UROBILINOGEN 0.2 E.U./dl (0.2-1.0)
[2019-09-06 13:05] LABS: AMORPHOUS URATES Many /LPF (None Seen); CASTS None Seen /LPF (None Seen); SQUAMOUS 0-3 Few /LPF (0-3)
[2019-09-06 13:06] LABS: BACTERIA 1-9 Few /HPF (None Seen); URINE RBC 0-2 Rare /HPF (0-2); URINE WBC 0-5 Rare /HPF (0-5)
--- NOTE | 2019-09-06 14:25 | NUR ---
PT AMDITTED RELATED TO L ANKLE FX. CM REVIEWED CHART AND SPOKE WITH CARE TEAM. CM CALLED AND SPOKE WITH PT VIA PHONE THIS AM. SHE APPEARED TO BE A&O X4. CM ROLE INTRODUCED. PT INDICATED SHE LIVES AT [place] [address] A SENIOR APARTMENT COMPLEX IN A STUDIO APARTMENT ALONE. SHE INDICATED THERE IS ELEVATOR ACCESS. PT INIDCATED SHE HAS A CANE AND A 4W TO ASSIST WITH MOBILITY. PT INIDCATED SHE HAD HH SERVICES BACK IN 2011 AND 2012 FORLLOWING HEART SURGERY. PT IS SCHEDULED FOR SURGERY THIS AFTERNOON. PT IS AWARE THAT SHE WILL BE NWB FOR 6 WEEKS POST OP AND SHE IS INTERESTED IN POST ACUTE CARE STAY. SHE EXPRESSED INTEREST IN 5N A POSSIBLE OPTION. CONSULT ENTERED. CM TO FOLLOW INDICATED WITH DC PLANNING.
--- NOTE | 2019-09-06 20:05 | NUR ---
Assumed care at 1630 from previous day shift nurse, pt was still at OR during report. Pt back to room at 1650, s/p ORIF. A+Ox4. On room air. Vital signs stable, post op vital signs taken and recorded. On carb controlled diet- tolerated well, pt only ate a portion of her dinner; no nausea, no vomiting and no abdominal pain noted. On blood sugar monitoring-taken and recorded accordingly, pre-dinner dose omitted since pt did not finish her tray, at risk for hypoglycemia. On telemetry- SR, strips attached to chart; no complaints of chest pain, crushing sensation and heaviness. With beltrán in place, draining well; output measured and recorded accordingly. With SL at R hand, ordered 1 bag of LR given as prescribed, infusing well at 100cc/hr. Complained of pain, due PRN pain meds given as prescribed. L Leg post op site with soft cast on, able to wiggle her toes, able to feel tactile stimulation; no signs of bleeding and infection noted; kept elevated; ice packs in place. To continue monitoring patient.
--- NOTE | 2019-09-07 04:25 | NUR ---
ASSUMED CARE AT APPROXIMATELY 1900. PT IS A/O X4. CAST IN PLACE TO LEFT ANKLE IN PLACE. PT DENIES ANY NUMBNESS OR TINGLING. ICE PACKS IN PLACE. PT C/O PAIN. PRN PAIN MEDICATION PROVIDED DIRECTED. PT IS CURRENTLY IN HER BED AND APPEARS TO BE SLEEPING. WILL CONTINUE TO [facility].
[2019-09-07 06:02] LABS: ABSOLUTE NEUTROPHILS 4.6 thou/uL (1.4-8.2); BASOPHILS 0.5 % (0.0-2.0); HEMATOCRIT 32.8 % (37.0-47.0); HEMOGLOBIN 10.8 gm/dL (12.0-15.0); LYMPHOCYTES 19.3 % (24.0-44.0); MCH 28.8 pg (26.0-34.0); MCHC 32.9 g/dL (28.0-37.0); MCV 87.5 fL (80.0-100.0); MONOCYTES 10.2 % (1.0-8.0); PLATELET COUNT 233 thou/uL (150-400); RBC 3.74 mil/uL (4.20-5.00); RDW 14.4 % (10.5-14.5); WBC 6.6 thou/uL (4.0-11.0)
[2019-09-07 06:59] LABS: ALBUMIN 2.2 g/dL (3.4-5.0); CALCIUM 8.3 mg/dL (8.5-10.1); CREATININE 1.7 mg/dL (0.6-1.0); MAGNESIUM 2.3 mg/dL (1.8-2.4); PHOSPHORUS 4.2 mg/dL (2.5-4.9); POTASSIUM 5.3 mmol/L (3.5-5.1); TOTAL BILIRUBIN 0.2 mg/dL (0.2-1.0); TOTAL PROTEIN 6.5 g/dL (6.4-8.2)
[2019-09-07 08:39] VITALS: BP 145/67
--- NOTE | 2019-09-07 13:32 | O ---
[address] [address] OPERATIVE REPORT Name: JUSTUS CAO Room #: 459-P ADM IN M.R.#: [id number] Admission: 09/05/19 Attend Phys: Avril House MD Discharge: Date of : 54 Report #: [id number] THIS REPORT FOR: cc: Gavin Owens,Rian Rosenthal MD ~ CC: Gavin House DATE OF SERVICE: 09/06/2019 SERVICE: Orthopedics. FACILITY: [facility]. SURGEON: Rian Smith MD WOUND CARE NURSE: Sara Nolasco NP INDICATION FOR WOUND CARE NURSE: Exposure, assistance with provisional reduction and internal fixation. PREOPERATIVE DIAGNOSES: 1. Left trimalleolar ankle fracture dislocation. 2. Syncopal episode. 3. Diabetes. POSTOPERATIVE DIAGNOSES: 1. Left trimalleolar ankle fracture dislocation syncopal episode. 2. Syncopal episode. 3. Diabetes. PROCEDURES: Open reduction and internal fixation, left trimalleolar ankle fracture with fixation of medial and lateral sides. COMPLICATIONS: None. DRAINS: None. SPECIMENS: None. ANESTHESIA: General. FINDINGS: 1. Good bone quality overall. 2. Synthes one-third tubular locking plate with hybrid fixation and [address] [address] OPERATIVE REPORT Name: JUSTUS CAO Room #: 459-P ADM IN .R.#: [id number] Admission: 09/05/19 Attend Phys: Avril House MD Discharge: Date of : 54 Report #: [id number] interfragmentary compression screw with 2 cannulated screws medially. HISTORY: The patient is a 68-year-old female who sustained a fall yesterday at her home and came in the Emergency Room. She had an ankle fracture dislocation, which was urgently closed reduced by the Emergency Room physician and she was admitted for workup of her syncopal episode as well as definitive surgical treatment of her ankle. The risks, benefits, alternatives and indications for surgical treatment were reviewed with her and questions were answered. Risks include but not limited to pain, bleeding, infection, injury to nerves or blood vessels, persistent pain despite surgical intervention, malunion, nonunion, need for further surgery including revision as well as hardware removal as well as complications related to anesthesia such as stroke, heart attack, pulmonary complications, thromboembolic disease and . Despite these risks, she wished to proceed. PROCEDURE IN DETAIL: After left lower extremity was correctly identified in the preoperative holding as operative extremity, the patient was taken to the operating room where general anesthesia was induced without complications. She was padded appropriately. Prophylactic antibiotics were administered at appropriate time with 900 mg clindamycin. Tourniquet was applied to the left leg. Left lower extremity was then prepped and draped in standard sterile fashion. Timeout procedure performed. Esmarch was used. Tourniquet inflated to 300 mmHg. Lateral incision was made and dissection was taken down with full thickness skin flaps to the lateral fibula. Fracture was exposed and displaced and then the hematoma was evacuated and then fracture site was irrigated. Provisional fixation was achieved with pointed reduction forceps and then a Synthes 3.5 mm x 26 mm interfragmentary compression screw was placed across the fracture, which provided good compression and good stability and the bone quality was very good. I selected a one-third tubular plate 6-hole with locking screw holes and then placed the plate on the shaft proximally and compressed it down to bone. I checked x-ray to assess the provisional plate fixation as well as the reduction and then proceeded with fixation. Two nonlocking screws were used proximally with a locking screw placed proximally as the third screw in order to build a more rigid construct and then the 2 distal screws were placed with locking screws as well due to her history of diabetes. The wound was then irrigated. We checked an x-ray and the fracture was anatomically reduced and well aligned on AP, mortise and lateral views and then I performed a cotton test and confirmed there was no syndesmotic injury. A longitudinal incision was made over the medial aspect of the ankle. Dissection was taken down to the bone. There was periosteum that was displaced into the fracture site. This was removed and excised sharply and then the fracture and the joint were thoroughly irrigated of fracture hematoma and then the fracture was reduced under direct visualization. This was a very anterior and obliquely oriented fracture such that the guide pins were placed in an anterior to posterior orientation and 2 guide pins were placed with good [address] [address] OPERATIVE REPORT Name: JUSTUS CAO Room #: 459-P ADM IN M.R.#: [id number] Admission: 09/05/19 Attend Phys: Avril House MD Discharge: Date of : 54 Report #: [id number] maintenance of the reduction. We then overdrilled the near cortex on the more anterior screw after I checked x-rays to confirm appropriate hardware positioning and then placed Synthes 4.0 cannulated screws across the fracture site. She had good quality bone and achieved 2 finger tightness with the first screw as well as the second screw, which was more posterior. Guide pins were removed and then final x-rays were taken, the wounds were irrigated. The deep layer was closed with 0 Vicryl suture laterally and then a 2-0 Vicryl suture medially and then the skin was closed with 2-0 Vicryl followed by 2-0 nylon. Sterile dressing was applied followed by a well-padded short leg splint. The patient was awakened from anesthesia and taken to recovery room in stable condition. No complications. All counts were correct. Postoperative plan will be 6 weeks nonweightbearing in a splint/cast and then 6 weeks of weightbearing in a boot if things are healing well. <ELECTRONICALLY SIGNED> By: Rian Smith MD 09/07/19 [id number] Rian Smith MD /nt
[2019-09-07 14:00] VITALS: BP 139/69
[2019-09-07 15:01] VITALS: BP 117/55
--- NOTE | 2019-09-07 15:46 | NUR ---
PT HAVING INCREASED PAIN THIS DAY. 5N CONSULTED BUT WERE AWIATING THERAPY EVALS. PT AND OT ASSESSED PT BUT INIDCATED ONGOING ASSESSMENT NEEDED. 5N SANFORIZING MACHINE OPERATOR INDICATED SNF WOULD LIKELY BE MORE APPROPRIATE GIVEN P'S NWB FOR 6 WEEKS AND LIVES ALONE. CM PROVIDED PT WITH A LIST OF SKILLED FACILITIES IN NETWORK WITH HER INSURANCE FOR HER TO REVIEW FOR SKILLED BACK UPS. CM TO FOLLOW INDICATED WITH DC PLANNING.
[2019-09-07 18:00] VITALS: BP 143/71
--- NOTE | 2019-09-07 20:42 | NUR ---
Received awake on bed. Due medications given as prescribed, able to swallow meds w/o difficulty. Vital signs stable. On telemetry, SR- no complaints of chest pain, heaviness and crushing sensation. On O2 at 2lpm via NC. On carb controlled diet- tolerating well; no nausea, no vomiting and no abdominal pain noted. On blood sugar monitoring- taken and recorded accordingly; with sliding scale ordered- given as prescribed. With beltrán in place- output measured and recorded accordingly. With NS at 50cc/hr, infusing well at R Hand. Complained of pain, due PRN pain meds given as prescribed. For OT/PT evaluation today. Assisted in ADLs. Falls bundle in place. Pt seen and examined by Physical therapist today- Forrest reported pt unable to follow commands during session- Dr Patel informed and neuro check done which she said that is normal; CT scan of head ordered. Previously ordered laxative given as prescribed- Dr Patel informed, still a/w bowel movement. Pt still with soft cast at L leg- able to wiggle toes and feel tactile stimulation, kept elevated and ice packs in place. To continue monitoring. Pt visited by relative- update given.
[2019-09-07 21:29] VITALS: BP 147/65
[2019-09-07 21:45] VITALS: BP 147/65
[2019-09-08 04:31] VITALS: BP 147/65
--- NOTE | 2019-09-08 04:48 | NUR ---
ASSUMED CARE OF PT AT 1900HRS. PT AOX4 AND LETS NEEDS BE KNOWN. FALL PRECAUTION IN PLACE. PT IS POST OP DAY 2. ICE PACK PROVIDED. PT IS NON WEIGHT BEARING. GO LITELY DOSE COMPLETED, NO BM NOTED THIS SHIFT. ASSESSMENT CHARTED. PT REPORTED SOME PAIN AND WAS TREATED PRN PAIN MEDS. PT DENIED NAUSEA OR SOA. PT HAD A TEMP 99.1. OTHER VSS AND NO S/S OF ACUTE DISTRESS. WILL CONTINUE TO MONITOR.
[2019-09-08 07:20] VITALS: BP 163/77
[2019-09-08 07:45] VITALS: BP 163/77
[2019-09-08 08:42] LABS: ABSOLUTE NEUTROPHILS 4.2 thou/uL (1.4-8.2); BASOPHILS 1.4 % (0.0-2.0); EOSINOPHILS 1.1 % (0.0-3.0); HEMATOCRIT 33.4 % (37.0-47.0); HEMOGLOBIN 10.9 gm/dL (12.0-15.0); LYMPHOCYTES 26.3 % (24.0-44.0); MCH 28.4 pg (26.0-34.0); MCHC 32.6 g/dL (28.0-37.0); MCV 87.1 fL (80.0-100.0); MONOCYTES 9.3 % (1.0-8.0); PLATELET COUNT 227 thou/uL (150-400); POLYS 61.9 % (36.0-66.0); RBC 3.84 mil/uL (4.20-5.00); RDW 14.1 % (10.5-14.5); WBC 6.8 thou/uL (4.0-11.0)
[2019-09-08 08:56] LABS: ALBUMIN 2.2 g/dL (3.4-5.0); CALCIUM 9.1 mg/dL (8.5-10.1); CREATININE 1.4 mg/dL (0.6-1.0); MAGNESIUM 2.3 mg/dL (1.8-2.4); POTASSIUM 4.7 mmol/L (3.5-5.1); TOTAL BILIRUBIN 0.3 mg/dL (0.2-1.0); TOTAL PROTEIN 6.9 g/dL (6.4-8.2)
--- NOTE | 2019-09-08 10:40 | NUR ---
5N CONSULT RECEIVED FOR THIS Pt. CONSULT COMPLETED BY JESSICA CHÁVEZ NP. DISCUSSED Pt WITH DR. JENKINS WHO RECOMMENDS SNF D/T EXTENDED PERIOD OF NWB STATUS (6 WEEKS), pt LIVING ALONE, AND LOW LEVEL OF FUNCTION AT THIS TIME. COMMUNICATED THIS INFO TO CHLORINE PLANT OPERATOR/CASE MGMT. THANK YOU FOR THIS REFERRAL.
--- NOTE | 2019-09-08 14:17 | NUR ---
5N INDICATED THAT PT IS MORE APPROPRIATE FOR SKILLED POST ACUTE CARE FACILITY. CM ATTEMPTED NUMEROUS CALLS TO PT'S ROOM THIS DAY WIHT NO ANSWER. NURSE AND THERAPY NOTES INDICATED THAT PT IS CONFUSED. NURSE STATED THAT NARCOTIC MEDS HAVE BEEN DECREASED IN HOPES THAT PT WILL CLEAR. J LUIS HAD FAXED HER LIST IN NETWORK SKILLED REHAB FACILITIES YESTERDAY BUT IT DOENS'T SOUND LIKE PT IS ABLE TO SELECT FACILITIES SHE'S BE INTERESTED IN J LUIS CALLED AUTH CONTACT MARAH GARVEY (BESTFRIEND) SHE INDICATED SHE HADN'T SPOKEN TO PT SINCE SURGERY BUT WOULD BE HAPPY TO ASSIST ANY WAY SHE CAN. CM EMAILED HER LIST OF REHAB FACILITIES WELL. CM TO FOLLOW UP WITH PT.
[2019-09-08 16:51] VITALS: BP 188/90
--- NOTE | 2019-09-08 19:33 | NUR ---
ASSUMED CARE OF PT AT 0700. PT IS A&OX4 AND HAS PERIODS OF NOTED CONFUSION. . PT FREQUENTLY FORGETS OWN LIMITS AND MADE ATTEMTS TO GET OUT OF BED THIS SHIFT. PT SELF REMOVED DEL ROSARIO CATHETER AND IV TO RIGHT HAND. PER ORDERS FROM PROVIDER, MONITOR URINARY OUTPUT AND OBTAIN POST VOID BLADDER SCANS NEEDED, PT VOIDED APPROPRIATELY, NO NOTED TRAUMA TO [place] AREA FOLLOWING REMOVAL, PT DENIES PAIN TO THE AREA. PT REPORTS PAIN TO LEFT LOWER EXTREMITY 10/20. PER PROVIDER NARCOTICS D/C'D DUE TO CONCERN THAT MEDICATIONS MAY BE CONTRIBUTING TO CONFUSION. CONFUSION CONTINUED THROUGHOUT SHIFT, ONCOMING NURSE AWARE OF CHANGE IN MENTAL STATUS. IV RESTARTED TO RIGHT AC. ACCU CHECKS ACHS. AT DINNER ACCU CHECK PT HAD CRITICAL LOW BG, PT GIVEN JUICE BY FELLOW NURSE AND WHEN RECHECKED WAS >70. INSULIN HELD THIS EVENING AND EVENT DISCUSSED WITH ONCOMING NURSE. NEURO CHECKS TO LLE WNL. NO BOWEL MOVEMENT THIS SHIFT, IMAGING COMPLETED AND PT BEING GIVEN ORDERED LAXATIVE, NO RESULTS AT THIS TIME. FALL PRECAUTIONS IN PLACE AND NURSING WILL CONTINUE TO MONITOR.
[2019-09-08 20:02] VITALS: BP 135/73
--- NOTE | 2019-09-09 04:47 | NUR ---
ASSUMED CARE OF PT AT APPROXIMATELY 1900. PT IS A/O X4 WITH SOME FORGETFULLNESS. C/O PAIN TO LEFT ANKLE BUT STATED "I DON'T WANT MANY PAIN KILLERS CAUSE THEY MAKE ME FEEL FUNNY". SHE ASKED FOR A PAIN PILL JUST ONE TIME. SHE'S NOW RESTING IN HER BED AND APPEARS TO BE SLEEPING. VSS. FALL PRECAUTIONS ARE IN PLACE, CALL LIGHT IS WITHIN REACH. WILL CONTINUE TO MONITOR.
[2019-09-09 07:21] LABS: HEMATOCRIT 32.3 % (37.0-47.0); HEMOGLOBIN 10.6 gm/dL (12.0-15.0); MCH 28.6 pg (26.0-34.0); MCHC 32.9 g/dL (28.0-37.0); MCV 87.1 fL (80.0-100.0); RBC 3.71 mil/uL (4.20-5.00); RDW 14.2 % (10.5-14.5); WBC 5.9 thou/uL (4.0-11.0)
[2019-09-09 07:22] VITALS: BP 187/98
[2019-09-09 07:35] LABS: CREATININE 1.2 mg/dL (0.6-1.0); POTASSIUM 4.2 mmol/L (3.5-5.1); TOTAL BILIRUBIN 0.3 mg/dL (0.2-1.0); TOTAL PROTEIN 6.5 g/dL (6.4-8.2)
[2019-09-09 14:53] VITALS: BP 140/104
--- NOTE | 2019-09-09 16:35 | NUR ---
ASSUMED CARE AT 0700. PT IS ALERT AND ORIENTED. NO CONFUSION NOTED. VSSA/2L O2. BP IS HIGH. WILL MONITOR, GIVE PRN MEDS ORDERED. TOLERATING DIET. BLOOD SUGARS MONITORED. PT BS LOW THIS AM. TREATED WITH 120 AJ. CAME UP. WILL MONITOR NML. GI-CONSTIPATED. PIV WITHOUT ISSUES. PT WORKING WITH PT. ABLE TO GET OOB TO CHAIR TODAY. NON WT BEARING ON LEFT LEG. BUT UNABLE TO GET UP BEFORE NOW. PAIN MED GIVEN NEEDED PRN. FALL PRECAUTIONS IN PLACE. EDUCATED PT TO CALL IF NEEDS ARISE. CALL LIGHT IN REACH. WILL CONTINUE TO MONITOR
[2019-09-09 20:00] VITALS: BP 169/80
--- NOTE | 2019-09-10 05:04 | NUR ---
ASSUMED CARE OF PT AT 1900. PT IS A/O X4 BUT FORGETFUL AT TIMES AND HAS INCREASED CONFUSION DURING THE NOC. PT WOKE AT DIDN'T KNOW WHERE SHE WAS AND STARTED TO GET OUT OF BED. REEDUCATED PT TO REALITY AND WHERE SHE WAS. PT IS NOW RESTING IN HER BED WITH L ANKLE ELEVATED AND HAS ICE PACKS ON. DRESSING HAS A SMALL AMOUNT OF PINK DRAINAGE TOWARDS THE HEEL OF THE LEFT FOOT. PT C/O PAIN. PRN PAIN MEDICATION GIVEN DIRECTED. PT IS NOW RESTING LYING IN HER BED AND APPEARS TO BE SLEEPING. WILL CONTINUE TO MONITOR.
[2019-09-10 07:30] VITALS: BP 201/87
--- NOTE | 2019-09-10 09:37 | NUR ---
Nutrition: Assessed due to early weekend LOS. Admit: L ankle fracture, now s/p ORIF surgery on 09/05 for fracture-dislocation. Hx: DM II, CKD stage 3, COPD. Limited meals recorded by staff in EMR this week. Pt ate 50-60% of all meals on 09/06, but no recordings the last 2 days. Visited during breakfast this a.m. Pt states appetite has been so-so, eating lower amounts only because she doesn't like all the food. Was provided a Room Service menu for the first time today, now aware she can order alternative items as often as needed. Pt will begin new food orders right away at lunch and feels this will help increase her PO intake a lot. 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 Reviewed benefit of consistent protein intake s/p surgery and identified sources. Main goal today also includes working on having a BM; pt recalls no BM in > 1 week. Provider notes indicate plan for 1000 ml Golytely prep to help w/ BM. Pt denies any additional nutrition questions or needs. Low nutrition risk w/ menu changes.
[2019-09-10 12:28] LABS: ABSOLUTE NEUTROPHILS 3.4 thou/uL (1.4-8.2); BASOPHILS 0.8 % (0.0-2.0); EOSINOPHILS 1.9 % (0.0-3.0); HEMATOCRIT 32.4 % (37.0-47.0); HEMOGLOBIN 10.7 gm/dL (12.0-15.0); LYMPHOCYTES 19.6 % (24.0-44.0); MCH 28.4 pg (26.0-34.0); MCHC 33.1 g/dL (28.0-37.0); MCV 85.8 fL (80.0-100.0); MONOCYTES 8.5 % (1.0-8.0); PLATELET COUNT 238 thou/uL (150-400); POLYS 69.2 % (36.0-66.0); RBC 3.77 mil/uL (4.20-5.00); RDW 13.9 % (10.5-14.5)
[2019-09-10 12:45] LABS: CALCIUM 8.8 mg/dL (8.5-10.1); CREATININE 1.3 mg/dL (0.6-1.0); MAGNESIUM 1.9 mg/dL (1.8-2.4); PHOSPHORUS 3.3 mg/dL (2.5-4.9); POTASSIUM 4.5 mmol/L (3.5-5.1); TOTAL BILIRUBIN 0.4 mg/dL (0.2-1.0); TOTAL PROTEIN 6.7 g/dL (6.4-8.2)
--- NOTE | 2019-09-10 15:06 | NUR ---
PT HAS BEEN ACCEPTED TO [facility]. THEY COULD HAVE ACCEPTED PT TODAY PT'S INSURANCE WAS WAIVING AUTH THROUGH SEPTEMBER 09 BUT WILL NEED AUTH IF READY TOMORROW. THEY HAVE SUBMITTED FOR AUTH. CARE TEAM INDICATED PT NEEDS TO HAVE BM BUT MIGHT BE READY FOR DC TOMOROW. SHOULD AUTH BE RECEIVED AND BM HAD CONTACT TAIWO AT TO FACILITATE DISHCARGE. ORDERS WILL NEED TO BE FAXED TO AND REPORT CALLED TO . CHART COPY ORDRED. NOTIFY PT'S FRIEND BLANCHE GARVEY PLEASE.
[2019-09-10 15:19] VITALS: BP 164/88
--- NOTE | 2019-09-10 20:33 | NUR ---
Assumed patient care at 0715. All vital signs stable except for blood pressure which continues as high. Cardiology Group here this am; they have ordered Amlodipine at HS for patient. Patient requested and received Hydrocodone 5/325mg ppo x's 2 during this shift for LLE pain; she reported "comlplete pain relief" after her 1800 dose. Patient was given a one time dose of "Go Lightly" this afternoon. This medication was effective. Patient reported "two large bowel movements." Discharge pending to SNF.
[2019-09-10 21:22] VITALS: BP 191/106
[2019-09-11 00:04] VITALS: BP 136/69
--- NOTE | 2019-09-11 04:19 | NUR ---
PATIENT ALERT AND ORIENTED X4. UP TO BSC WITH ONE ASSIST. COOPERATIVE WITH CARE. BLOOD SUGAR AT 2100 WAS 66. GIVEN SNACK. BS AT 2212 WAS 75. THIS NURSE MONITORED BS AT MN WHICH WAS 71 AND SNACK WAS GIVEN. RE-CHECKED AT 0300 AND BS WAS 70. PATIENT GIVEN ANOTHER SNACK. BP ELEVATED 191/106, GIVEN PRN IV HYDRALAZINE AND BS DECREASED TO 136/69. MIDNIGHT SCHEDULED HYDRALAZINE WAS HELD. PAIN MEDICATION GIVEN X1 DURING THE NIGHT AT TIME OF THIS NOTE WITH GOOD RESULTS. RESTING QUIETLY. WILL MONITOR. REMAINS ON TELE-NSR.
[2019-09-11 06:36] VITALS: BP 127/64
[2019-09-11 07:06] VITALS: BP 141/64
[2019-09-11 11:54] VITALS: BP 170/67
[2019-09-11 15:15] VITALS: BP 117/60
--- NOTE | 2019-09-11 17:01 | NUR ---
A/O, calm and cooperative; up with one lead dental assistant; liver ultrasound was scheduled as tomorrow due to patient being BG low.
[2019-09-11 21:49] VITALS: BP 127/68
--- NOTE | 2019-09-12 03:36 | NUR ---
PATIENT ALERT AND ORIENTED X4. UP IN CHAIR AT BEGINNING OF SHIFT UNTIL ABOUT MN. MOVING WITH WALKER MUCH BETTER KEEPING WEIGHT OFF OF CAST. BS MONITORED PER ORDER, 179 AT 2100. PLEASANT AND COOPERATIVE. RESTING QUIETLY AT TIME OF NOTE. WILL MONITOR.
[2019-09-12 07:41] LABS: ABSOLUTE NEUTROPHILS 3.4 thou/uL (1.4-8.2); BASOPHILS 0.8 % (0.0-2.0); EOSINOPHILS 1.9 % (0.0-3.0); HEMOGLOBIN 11.5 gm/dL (12.0-15.0); LYMPHOCYTES 25.1 % (24.0-44.0); MCH 28.2 pg (26.0-34.0); MCHC 32.8 g/dL (28.0-37.0); MONOCYTES 8.3 % (1.0-8.0); PLATELET COUNT 293 thou/uL (150-400); POLYS 63.9 % (36.0-66.0); RBC 4.07 mil/uL (4.20-5.00); WBC 5.3 thou/uL (4.0-11.0)
[2019-09-12 07:54] LABS: ALBUMIN 2.2 g/dL (3.4-5.0); CALCIUM 9.3 mg/dL (8.5-10.1); CREATININE 1.3 mg/dL (0.6-1.0); MAGNESIUM 2.2 mg/dL (1.8-2.4); PHOSPHORUS 4.4 mg/dL (2.5-4.9); POTASSIUM 3.5 mmol/L (3.5-5.1); TOTAL BILIRUBIN 0.3 mg/dL (0.2-1.0); TOTAL PROTEIN 7.5 g/dL (6.4-8.2)
[2019-09-12 08:57] VITALS: BP 102/68
[2019-09-12 15:34] VITALS: BP 116/66
[2019-09-12 19:13] VITALS: BP 143/59
--- NOTE | 2019-09-12 19:34 | NUR ---
ASSUMED CARE OF PT AT SHIFT CHANGE. ASSESSMENT CHARTED. MEDS GIVEN PER APR. PT A&OX4. C/O PAIN TREATED WITH PO MEDS WITH PARTIAL RELIEF. CRITICAL LOW BP TREATED WITH IV DEXTROSE WITH GOOD RESULTS. PT CONCERNED ABOUT MISSING PURSE. PLAN TO DC TO [facility] TOMORROW. WILL CONTINUE TO MONITOR AND FOLLOW POC.
[2019-09-12 23:54] VITALS: BP 127/55
--- NOTE | 2019-09-13 04:51 | NUR ---
PATIENT ALERT AND ORIENTED X4. IV FLUID NOT RUNNING AT SHIFT CHANGE. THIS NURSE RESTARTED IV FLUID DUE TO HISTORY OF BS DROPPING DURING THE NIGHT. EVENING BLOOD SUGAR WAS 145. THIS NURSE ADMINISTERED 3UNITS OF LISPRO INSULIN AND STANDING ORDER OF 15UNITS OF LANTUS. RECHECKED BS AT 2339;134 AGAIN AT 0336;91 WITH IVF INFUSING (D5NS AT 80/ML). RESTING QUIETLY. POSSIBLE DISCHARGE TO [facility] TODAY. WILL MONITOR.
--- NOTE | 2019-09-13 05:26 | NUR ---
PATIENT STATES THAT SHE HAD A CREAM COLORED SMALL BACKPACK PURSE THAT IS MISSING. STATES SHE REMEMBERS BECAUSE SHE HAD TO REMOVE HER EARRINGS BEFORE SURGERY AND SHE PLACED THEM IN THE PURSE. THIS NURSE WENT DOWN TO SECURITY WHO DID NOT HAVE THE ITEM. ALSO WENT TO THE EMERGENCY DEPARTMENT AND THEY DID NOT HAVE IT. ADMISSION HISTORY; THERE WAS A LISTING OF A PURSE NOTED.
[2019-09-13 06:08] VITALS: BP 129/60
[2019-09-13 06:18] LABS: ABSOLUTE NEUTROPHILS 2.6 thou/uL (1.4-8.2); BASOPHILS 0.8 % (0.0-2.0); EOSINOPHILS 1.7 % (0.0-3.0); HEMATOCRIT 29.7 % (37.0-47.0); LYMPHOCYTES 29.8 % (24.0-44.0); MCHC 33.6 g/dL (28.0-37.0); MCV 86.1 fL (80.0-100.0); MONOCYTES 10.7 % (1.0-8.0); PLATELET COUNT 257 thou/uL (150-400); RBC 3.45 mil/uL (4.20-5.00); RDW 13.9 % (10.5-14.5); WBC 4.5 thou/uL (4.0-11.0)
[2019-09-13 06:36] LABS: ALBUMIN 1.9 g/dL (3.4-5.0); CALCIUM 8.5 mg/dL (8.5-10.1); CREATININE 1.5 mg/dL (0.6-1.0); MAGNESIUM 2.2 mg/dL (1.8-2.4); PHOSPHORUS 3.8 mg/dL (2.5-4.9); POTASSIUM 3.9 mmol/L (3.5-5.1); TOTAL BILIRUBIN 0.2 mg/dL (0.2-1.0); TOTAL PROTEIN 6.4 g/dL (6.4-8.2)
[2019-09-13 07:39] VITALS: BP 122/65
[2019-09-13 09:24] VITALS: BP 122/65
[2019-09-13] MEDS ORDERED: HEPARIN SO5000 UNIT/ SUBQ (10:40)
[2019-09-13] MEDS ORDERED: CARVEDILOL25 MG PO (10:41)
[2019-09-13] MEDS ORDERED: OXYCODONE HCL 55 MG PO (10:41)
[2019-09-13] MEDS ORDERED: KLOR-CON 10 ER10 MEQ PO (10:42)
[2019-09-13] MEDS ORDERED: COLACE 100 MG100 MG PO (10:43)
[2019-09-13] MEDS ORDERED: CHLORTHALIDONE25 MG PO (10:43)
[2019-09-13] MEDS ORDERED: LANTUS SUBQ (10:44)
[2019-09-13] MEDS ORDERED: PROTONIX 20 MG20 M1 PO (10:44)
[2019-09-13] MEDS ORDERED: GABAPENTIN100 MG PO (10:45)
--- NOTE | 2019-09-13 11:01 | NUR ---
PT DISCHARGING TODAY TO [facility] FAXED DC ORDERS/SUMMARY TO FACILITY SPOKE WITH EMILE IN ADM SHE RECEIVED ORDERS AND ARRANGED TRANSPORT BY [facility] FOR 1300 TODAY. NOTIFIED PT'S FRIEND/CONTACT (MARAH) OF DC AND TIME OF TRANSPORT. UNIT NOTIFIED AND CHART COPY PER US. RN TO CALL REPORT TO [phone].
--- NOTE | 2019-09-13 11:33 | NUR ---
AUTH WAS RECIEVED FOR PT TO DISCHARGE TO [facility] THIS DAY. CARE TEAM IS MEDICALLY STABLE TO DC TODAY. CHART COPY ORDERED. ORDERS FAXED. [facility] TRANSPORT ARRANGED FOR 1300. REPORT TO BE CALLED TO . PT AND FRIEND MARAH ARE AWARE AND AGREEABLE. NO OTHER CM INTERVENTION INDICATED. CASE CLOSED.
--- NOTE | 2019-09-13 18:07 | NUR ---
Received awake on bed. Due medications given as prescribed, able to swallow meds w/o difficulty. On room air. Vital signs stable. On carb controlled diet- tolerating well, no nausea, no vomiting and no abdominal pain noted. On blood sugar monitoring- taken and recorded accordingly; with sliding scale insulin ordered- given as prescribed. With D5NS, infusing well at R upper arm; dressing C/D/I. Assisted in ADLs. On telemtry, SR-ST; strips attached to chart; no complaints of chest pain, crushing sensation and heaviness. Still a/w stool for occult. Continent of bowel and bladder, able to use bedside commode with moderate assist; Pt aware of non weight bearing status on L leg. L leg with soft cast on, able to wiggle toes and feel tactile stimulation. Falls bundle in place; minimum to standby assist; able to use walker and gait belt. Pt complained of missing belongings, called security: credit card, jewelry and other valuables return to patient by security; pt still looking for her cream colored backpack, checked room, called OR and Recovery and they said there is none- pt updated and said she's fine, as long as her valuables are returned to her- which was returned by security for safekeeping. Pt seen and examined by Dr Patel- discharge orders made. Discharge instructions, follow up schedule given and instructed to patient. Discharge forms signed. Chart copy and prescription given to transport staff. CM set up transport at 1300- pt updated. Pt fetched by transport staff at 1300, taken down via wheelchair with her personal belongings. Report given to Staff Yoana of [facility] at 1337.
== END 2019-09-13 13:28 | DRG 492 ==
LOC: ER 17:50 → 4W 20:30 → EROBS 20:30 → 4W 21:35
PROVIDERS: Emergency Medicine; Internal Medicine; Nurse Practitioner; Nurse Practitioner Family; Specialist; ADMIT Internal Medicine; ATTEND Internal Medicine
PROC: 2W3RX1Z Immobilization of Left Lower Leg using Splint (ICD-10-PCS; principal; 2019-09-05)
PROC: 0SSGXZZ Reposition Left Ankle Joint, External Approach (ICD-10-PCS; 2019-09-05)
PROC: 0QSK04Z Reposition Left Fibula with Internal Fixation Device, Open Approach (ICD-10-PCS; 2019-09-06)
PROC: 0QSH04Z Reposition Left Tibia with Internal Fixation Device, Open Approach (ICD-10-PCS; 2019-09-06)
DX: S82.852A Displaced trimalleolar fracture of left lower leg, initial encounter for closed fracture (principal); G92 Toxic encephalopathy; N17.0 Acute kidney failure with tubular necrosis; I13.0 Hypertensive heart and chronic kidney disease with heart failure and stage 1 through stage 4 chronic kidney disease, or unspecified chronic kidney disease; Z20.828 Contact with and (suspected) exposure to other viral communicable diseases; I25.10 Atherosclerotic heart disease of native coronary artery without angina pectoris; E78.5 Hyperlipidemia, unspecified; E11.42 Type 2 diabetes mellitus with diabetic polyneuropathy; J45.909 Unspecified asthma, uncomplicated; F32.9 Major depressive disorder, single episode, unspecified; G47.33 Obstructive sleep apnea (adult) (pediatric); E11.22 Type 2 diabetes mellitus with diabetic chronic kidney disease; N18.3 Chronic kidney disease, stage 3 (moderate); Z60.2 Problems related to living alone; I50.9 Heart failure, unspecified; J44.9 Chronic obstructive pulmonary disease, unspecified; R74.0 Nonspecific elevation of levels of transaminase and lactic acid dehydrogenase [LDH]; I95.1 Orthostatic hypotension; R09.02 Hypoxemia; E66.9 Obesity, unspecified; D64.9 Anemia, unspecified; E11.649 Type 2 diabetes mellitus with hypoglycemia without coma; K59.09 Other constipation; I25.2 Old myocardial infarction; Z95.5 Presence of coronary angioplasty implant and graft; Z87.891 Personal history of nicotine dependence; Z90.49 Acquired absence of other specified parts of digestive tract; Z88.0 Allergy status to penicillin; Z82.49 Family history of ischemic heart disease and other diseases of the circulatory system; Z83.3 Family history of diabetes mellitus; Z83.6 Family history of other diseases of the respiratory system; Z79.82 Long term (current) use of aspirin; Z79.899 Other long term (current) drug therapy; Z95.1 Presence of aortocoronary bypass graft; Z68.30 Body mass index [BMI] 30.0-30.9, adult
CPT/HCPCS: 10045; 50010; 50101; 50341; 50343; 50386; 51122; 53400; 56525; 56528; 56667; 57091; 57180; 62110; 62900; 70005

== ENCOUNTER → 2019-09-24 | Outpatient (CLI) | payer OTHER ==
[~2019-09-24] MED LIST changes: +CARVEDILOL25 MG PO; +CHLORTHALIDONE25 MG PO; +COLACE 100 MG100 MG PO; +CRESTOR40 MG PO; +GABAPENTIN100 MG PO; +HEPARIN SO5000 UNIT/ SUBQ; +HUMALOG100 UNIT/1 SUBQ; +KLOR-CON 10 ER10 MEQ PO; +LANTUS SUBQ; +OXYCODONE HCL 55 MG PO; +OZEMPIC0.25 MG/0. SUBQ; +PROTONIX 20 MG20 M1 PO; +TOUJEO SOL300 UNIT/1 SUBQ
== END ==
LOC: SJCVC 13:28
PROVIDERS: ATTEND Internal Medicine Cardiovascular Disease
DX: R94.31 Abnormal electrocardiogram [ECG] [EKG] (principal); R00.1 Bradycardia, unspecified; I25.118 Atherosclerotic heart disease of native coronary artery with other forms of angina pectoris; I10 Essential (primary) hypertension; E11.9 Type 2 diabetes mellitus without complications; E78.00 Pure hypercholesterolemia, unspecified; Z79.899 Other long term (current) drug therapy; Z87.891 Personal history of nicotine dependence

== ENCOUNTER → 2019-12-10 | Outpatient (CLI) | payer OTHER | LOC: HYPER 09:42 | PROVIDERS: ATTEND Emergency Medicine Emergency Medical Services | DX: T81.32XA Disruption of internal operation (surgical) wound, not elsewhere classified, initial encounter (principal); S91.115A Laceration without foreign body of left lesser toe(s) without damage to nail, initial encounter; E11.622 Type 2 diabetes mellitus with other skin ulcer; L97.322 Non-pressure chronic ulcer of left ankle with fat layer exposed; S82.892A Other fracture of left lower leg, initial encounter for closed fracture; S82.852A Displaced trimalleolar fracture of left lower leg, initial encounter for closed fracture; E11.51 Type 2 diabetes mellitus with diabetic peripheral angiopathy without gangrene; L84 Corns and callosities; E11.319 Type 2 diabetes mellitus with unspecified diabetic retinopathy without macular edema; J45.909 Unspecified asthma, uncomplicated; I11.0 Hypertensive heart disease with heart failure; I50.9 Heart failure, unspecified; I25.10 Atherosclerotic heart disease of native coronary artery without angina pectoris; E78.5 Hyperlipidemia, unspecified; I25.2 Old myocardial infarction; F41.9 Anxiety disorder, unspecified; F32.9 Major depressive disorder, single episode, unspecified; Z87.891 Personal history of nicotine dependence; Z79.4 Long term (current) use of insulin; Z95.1 Presence of aortocoronary bypass graft; Z90.49 Acquired absence of other specified parts of digestive tract; Y83.8 Other surgical procedures as the cause of abnormal reaction of the patient, or of later complication, without mention of misadventure at the time of the procedure; X58.XXXA Exposure to other specified factors, initial encounter; Y93.89 Activity, other specified; Y92.238 Other place in hospital as the place of occurrence of the external cause; Y99.8 Other external cause status ==

== ENCOUNTER → 2019-12-24 | Outpatient (CLI) | payer OTHER | LOC: HYPER 10:11 | PROVIDERS: ATTEND Emergency Medicine Emergency Medical Services | DX: T81.31XD Disruption of external operation (surgical) wound, not elsewhere classified, subsequent encounter (principal); E11.622 Type 2 diabetes mellitus with other skin ulcer; L97.322 Non-pressure chronic ulcer of left ankle with fat layer exposed; S91.119D Laceration without foreign body of unspecified toe without damage to nail, subsequent encounter; S82.892D Other fracture of left lower leg, subsequent encounter for closed fracture with routine healing; S82.852D Displaced trimalleolar fracture of left lower leg, subsequent encounter for closed fracture with routine healing; E11.51 Type 2 diabetes mellitus with diabetic peripheral angiopathy without gangrene; L84 Corns and callosities; E11.319 Type 2 diabetes mellitus with unspecified diabetic retinopathy without macular edema; J45.909 Unspecified asthma, uncomplicated; I11.0 Hypertensive heart disease with heart failure; I50.9 Heart failure, unspecified; I25.10 Atherosclerotic heart disease of native coronary artery without angina pectoris; E78.5 Hyperlipidemia, unspecified; I25.2 Old myocardial infarction; F41.9 Anxiety disorder, unspecified; F32.9 Major depressive disorder, single episode, unspecified; Z79.4 Long term (current) use of insulin; Z87.891 Personal history of nicotine dependence; Z95.1 Presence of aortocoronary bypass graft; X58.XXXD Exposure to other specified factors, subsequent encounter; Y83.1 Surgical operation with implant of artificial internal device as the cause of abnormal reaction of the patient, or of later complication, without mention of misadventure at the time of the procedure ==

== ENCOUNTER → 2020-02-17 | Outpatient (CLI) | payer OTHER ==
--- NOTE | ~2020-02-17 | EEG ---
[facility] [place] [address] ELECTROENCEPHALOGRAM Name: JUSTUS CAO Kp Room #: [facility].#: [id number] Admission: 02/17/20 Attend Phys: Demar Khan MD Discharge: Date of : 54 Report #: [id number] THIS REPORT FOR: //name// DATE OF SERVICE: 02/17/2020 This patient is being evaluated for syncope. EEG was done by placing the electrode by standard 10-20 system of electrode placement. Both referential and sequential montages were used for recording. Background activity in this patient's EEG is about 9 Hz and 30 microvolt. The patient went to sleep that is associated with bilateral slowing and vertex sharp waves. Photic stimulation is unremarkable. Throughout the record, no active epileptiform activity was noticed. IMPRESSION: This patient's EEG is within normal limits. Thank you very much for this referral. By: [id number] [id number] Demar Khan MD /nt
== END ==
LOC: NEURO 09:27
PROVIDERS: ATTEND Psychiatry & Neurology Neuromuscular Medicine
DX: I67.82 Cerebral ischemia (principal); R42 Dizziness and giddiness; R55 Syncope and collapse

== ENCOUNTER 2020-04-18 09:17 | Emergency (ER) | payer OTHER ==
[~2020-04-18] VITALS: Ht 180.3 cm; Wt 100.7 kg
[2020-04-18] MEDS ORDERED: FUROSEMIDE 40 M40 M1 PO (09:22)
[2020-04-18] MEDS ORDERED: CELEXA 20 MG TA20 MG PO (09:22)
[2020-04-18] MEDS ORDERED: METOPROLOL SUCC50 MG PO (09:23)
[2020-04-18] MEDS ORDERED: HYDROCODON-ACE1 EAC7 PO (10:17)
[2020-04-18] MEDS ORDERED: FAMCYCLOVIR 50500 M1 PO (10:17)
[2020-04-18 10:34] VITALS: BP 166/77
== END 2020-04-18 10:40 | disposition home or self-care (01) ==
LOC: ER 09:17
DX: M25.512 Pain in left shoulder (principal); B02.9 Zoster without complications; J45.909 Unspecified asthma, uncomplicated; I25.10 Atherosclerotic heart disease of native coronary artery without angina pectoris; I25.2 Old myocardial infarction; E78.5 Hyperlipidemia, unspecified; E11.22 Type 2 diabetes mellitus with diabetic chronic kidney disease; I12.9 Hypertensive chronic kidney disease with stage 1 through stage 4 chronic kidney disease, or unspecified chronic kidney disease; N18.30 Chronic kidney disease, stage 3 unspecified; Z79.82 Long term (current) use of aspirin; Z79.899 Other long term (current) drug therapy; Z88.0 Allergy status to penicillin

== ENCOUNTER 2020-05-02 14:02 | Emergency (ER) | payer OTHER ==
[~2020-05-02] VITALS: Ht 180.3 cm; Wt 96.2 kg
[~2020-05-02 14:02] MED LIST changes: +CELEXA 20 MG TA20 MG PO; +FAMCYCLOVIR 50500 M1 PO; +FUROSEMIDE 40 M40 M1 PO; +HYDROCODON-ACE1 EAC7 PO; +METOPROLOL SUCC50 MG PO
[2020-05-02] MEDS ORDERED: PERCOCET 5-3251 EACH PO (15:21)
[2020-05-02] MEDS ORDERED: ZOFRAN ODT4 MG PO (15:21)
[2020-05-02] MEDS ORDERED: NEURONTIN 300M300 M2 PO (15:21)
[2020-05-02 15:50] VITALS: BP 136/78
== END 2020-05-02 15:50 | disposition home or self-care (01) ==
LOC: ER 14:02
DX: B02.9 Zoster without complications (principal); E78.5 Hyperlipidemia, unspecified; J45.909 Unspecified asthma, uncomplicated; E11.22 Type 2 diabetes mellitus with diabetic chronic kidney disease; I12.9 Hypertensive chronic kidney disease with stage 1 through stage 4 chronic kidney disease, or unspecified chronic kidney disease; N18.30 Chronic kidney disease, stage 3 unspecified; Z90.49 Acquired absence of other specified parts of digestive tract; Z79.899 Other long term (current) drug therapy; Z79.4 Long term (current) use of insulin; Z79.82 Long term (current) use of aspirin; Z88.0 Allergy status to penicillin

== ENCOUNTER 2020-09-01 13:14 | Inpatient (IN) | payer OTHER ==
[~2020-09-01] VITALS: Ht 180.3 cm; Wt 95.9 kg
--- NOTE | ~2020-09-01 | EMS ---
[address] [address] EMS Patient Care Report Name: JUSTUS CAO Room #: 219-P [facility] IN M.R.#: [id number] Admission: 09/01/20 Attend Phys: Daniel Huizar MD Discharge: 09/04/20 Date of : 54 Report #: [id number] THIS REPORT FOR: //name// Report Transmitted: 09/07/2020 13:19 EMS Care Summary [facility] Incident [id number] @ 09/01/2020 12:20 Incident Location [address] [place] [address] Patient JUSTUS CAO Female, 69 Years 1950 Patient Address [address] [place], [place] [id number] Patient History Asthma,Chronic Obstructive Pulmonary Disease (COPD),Diabetes,Shingles,Myocardial Infarction (ND), Patient Allergies Penicillin allergy, Patient Medications Oxycodone/ASA, Gabapentin, Ventolin, Ondansetron, Chief Complaint dizziness Disposition Transported No Lights/[place] Reason Sick Person Transported To [facility] Narrative AOS to 69yo F. Found in private res. AOx4. Approached Pt in full PPE and placed [address] [address] EMS Patient Care Report Name: JUSTUS CAO Room #: 219-P [facility] IN Min.#: [id number] Admission: 09/01/20 Attend Phys: Daniel Huizar MD Discharge: 09/04/20 Date of : 54 Report #: [id number] mask on Pt. C/O Dizziness. Pt was doing chores around the house when she became dizzy and sat to the toilet where she passed out and was found by home health nurse. Upon arrival Pt was alert but when she stood she passed out again and was assisted back to the toilet. Negative chest pain. Negative SOB. Negative Abd pain. Negative N/V. Negative trauma. PERRL. Pt lung sounds clear and equal bi-lat. 12 lead shows no acute changes. Medic Cassius obtained IV access. Pt moved to ambulance via gurney without incident. Pt transported in POC without incident. Pt care transferred to MEDICAL PHYSICS PROFESSOR without incident. Stefani Malik returned to service. All time approx. Initial Vitals @12:55MI Suspected: false @12:38P: 61,R: 18,BP: 88/48,CO: 4,SpO2: 93, @12:59P: 59,R: 18,BP: 108/51, @12:56P: 60,R: 18,BP: 90/52, @13:05P: 59,R: 18,BP: 77/52, @12:46P: 62,R: 18,BP: 81/51,SpO2: 92, @13:06P: 60,R: 18,BP: 84/42,Pain: 0/10,GCS: 15,SpO2: 99,Revised Trauma: 11, @12:33P: 61,R: 18,BP: 78/48,Pain: 0/10,GCS: 15,Glucose: 181,SpO2: 98,Revised Trauma: 11, Assessments @12:37MENTAL:No Abnormalities,SKIN:No Abnormalities,HEENT:Head/Face: No Abnormalities,Eyes: No Abnormalities,Neck/Airway: No Abnormalities,LUNG SOUNDS:General: No Abnormalities,Left Upper: No Abnormalities,Right Upper: No Abnormalities,Left Lower: No Abnormalities,Right Lower: No Abnormalities,ABDOMEN:General: No Abnormalities,Left Upper: No Abnormalities,Right Upper: No Abnormalities,Left Lower: No Abnormalities,Right Lower: No Abnormalities,PELVIS//GI:No Abnormalities,EXTREMITIES:Left Arm: No Abnormalities,Right Arm: No Abnormalities,Left Leg: No Abnormalities,Right Leg: No Abnormalities,PULSE:Radial: 2+ Normal,NEURO:No Abnormalities,@12:56MENTAL:No Abnormalities,SKIN:No Abnormalities,HEENT:Head/Face: No Abnormalities,Eyes: No Abnormalities,Neck/Airway: No Abnormalities,LUNG SOUNDS:General: No Abnormalities,Left Upper: No Abnormalities,Right Upper: No Abnormalities,Left Lower: No Abnormalities,Right Lower: No Abnormalities,ABDOMEN:General: No Abnormalities,Left Upper: No Abnormalities,Right Upper: No Abnormalities,Left Lower: No Abnormalities,Right Lower: No Abnormalities,PELVIS//GI:No Abnormalities,EXTREMITIES:Left Arm: No Abnormalities,Right Arm: No Abnormalities,Left Leg: No Abnormalities,Right Leg: No Abnormalities,PULSE:NEURO:No Abnormalities, Impression Dizziness Procedures @12:43ALS AssessmentResponse: UnchangedSucceeded@12:55Saline Lock 10cc (18 ga) [address] [address] EMS Patient Care Report Name: JUSTUS CAO Room #: 219-[facility] IN M.R.#: [id number] Admission: 09/01/20 Attend Phys: Daniel Huizar MD Discharge: 09/04/20 Date of : 54 Report #: [id number] Site: Antecubital-LeftResponse: UnchangedSucceeded@12:5512-Lead ECG Timeline 12:18,Call Received 12:18,Psap Call 12:20,Dispatched 12:22,En Route 12:26,Initial Responder On Scene 12:26,On Scene 12:27,At Patient 12:33,BP: 78/48 M,PULSE: 61,RR: 18 R,SPO2: 98 Ox,ETCO2: ,B,PAIN: 0,GCS: 15, 12:38,BP: 88/48 M,PULSE: 61,RR: 18 R,SPO2: 93 Ox,ETCO2: ,BG: ,PAIN: ,GCS: , 12:43,ALS Assessment,Response: UnchangedSucceeded, 12:46,BP: 81/51 M,PULSE: 62,RR: 18 R,SPO2: 92 Ox,ETCO2: ,BG: ,PAIN: ,GCS: , 12:49,Depart Scene 12:55,Saline Lock 10cc 18 ga Site: Antecubital-Left,Response: UnchangedSucceeded, 12:55,12-Lead ECG, 12:55,BP: / M,PULSE: ,RR: R,SPO2: Ox,ETCO2: ,BG: ,PAIN: ,GCS: , 12:56,BP: 90/52 M,PULSE: 60,RR: 18 R,SPO2: Ox,ETCO2: ,BG: ,PAIN: ,GCS: , 12:59,BP: 108/51 M,PULSE: 59,RR: 18 R,SPO2: Ox,ETCO2: ,BG: ,PAIN: ,GCS: , 13:05,BP: 77/52 M,PULSE: 59,RR: 18 R,SPO2: Ox,ETCO2: ,BG: ,PAIN: ,GCS: , 13:06,BP: 84/42 M,PULSE: 60,RR: 18 R,SPO2: 99 Ox,ETCO2: ,BG: ,PAIN: 0,GCS: 15, 13:11,At Destination 13:30,Call Closed Disclaimer v1.1 Copyright 2020 [employer] This EMS Care Summary contains data elements from the applicable legal record (which may be displayed differently). It is designed to provide pertinent information for the following purposes: continuity of care, clinical quality, and state data reporting. The complete legal record is available to ED staff and administrators of the receiving hospital in [employer]'s Patient Tracker. All data is provided "as is."
[~2020-09-01 13:14] MED LIST changes: +NEURONTIN 300M300 M2 PO; +PERCOCET 5-3251 EACH PO; +ZOFRAN ODT4 MG PO
[2020-09-01 13:27] VITALS: BP 114/57
[2020-09-01 13:49] LABS: HEMATOCRIT 30.2 % (37.0-47.0); HEMOGLOBIN 9.9 gm/dL (12.0-15.0); MCH 27.2 pg (26.0-34.0); MCHC 32.9 g/dL (28.0-37.0); MCV 82.5 fL (80.0-100.0); RBC 3.65 mil/uL (4.20-5.00); RDW 14.6 % (10.5-14.5); WBC 4.7 thou/uL (4.0-11.0)
[2020-09-01 13:54] LABS: ANION GAP 2 mmol/L (7-16); BUN 77 mg/dL (7-18); CALCIUM 9.8 mg/dL (8.5-10.1); CHLORIDE 100 mmol/L (98-107); CO2 33 mmol/L (21-32); GLUCOSE 215 mg/dL (74-106); POTASSIUM 5.4 mmol/L (3.5-5.1); SODIUM 135 mmol/L (136-145)
[2020-09-01 14:05] LABS: ALBUMIN 2.9 g/dL (3.4-5.0); SGOT 50 U/L (15-37); SGPT 69 U/L (14-59); TOTAL BILIRUBIN 0.2 mg/dL (0.2-1.0); TOTAL PROTEIN 7.4 g/dL (6.4-8.2); TROPONIN-I <0.06 ng/mL (<0.06)
[2020-09-01 14:29] LABS: URINE BILIRUBIN NEGATIVE (Negative); URINE BLOOD NEGATIVE (Negative); URINE CLARITY CLEAR; URINE COLOR YELLOW; URINE GLUCOSE-RANDOM* NEGATIVE (Negative); URINE KETONES NEGATIVE (Negative); URINE LEUKOCYTES-REFLEX 1+ (Negative); URINE NITRITE-REFLEX NEGATIVE (Negative); URINE PROTEIN (DIPSTICK) 2+ (Negative); URINE UROBILINOGEN 0.2 E.U./dl (0.2-1.0)
[2020-09-01 14:40] LABS: SQUAMOUS 4-10 Moderate /LPF (0-3); URINE WBC-REFLEX 6-15 Few /HPF (0-5)
[2020-09-01 14:41] LABS: CRYSTALS None Seen /LPF (None Seen); HYALINE CASTS 0-3 Few /LPF (None Seen); MUCUS 0-3 Light strn/LPF (None Seen); URINE RBC None Seen /HPF (NONE SEEN)
[2020-09-01 18:27] VITALS: BP 114/57
[2020-09-01 20:10] VITALS: BP 175/88
[2020-09-01 20:10] LABS: TOTAL PROTEIN 7.6 g/dL (6.4-8.2)
--- NOTE | 2020-09-01 22:18 | NUR ---
PT ADMITTED FROM ED, ALERT AND ORIENTEDX4, SR ON TELE, DENIES PAIN OR SOB, ADMISSION ASSESSMENT, HX AND EDUCATION COMPLETED, MEDS GIVEN PER MAR, FLUIDS INFUSING PER ORDERS, NO NEEDS AT THIS TIME, WILL CONTINUE TO MNITOR AND FOLLOW POC
[2020-09-02] VITALS (9 sets, daily range): BP systolic 105–163; BP diastolic 69–89
[2020-09-02 04:34] LABS: HEMATOCRIT 29.6 % (37.0-47.0); HEMOGLOBIN 9.7 gm/dL (12.0-15.0); MCH 27.2 pg (26.0-34.0); MCHC 32.9 g/dL (28.0-37.0); MCV 82.6 fL (80.0-100.0); RBC 3.58 mil/uL (4.20-5.00); RDW 14.9 % (10.5-14.5); WBC 3.9 thou/uL (4.0-11.0)
[2020-09-02 04:41] LABS: CREATININE 2.5 mg/dL (0.6-1.0); POTASSIUM 4.6 mmol/L (3.5-5.1)
--- NOTE | 2020-09-02 10:42 | EKG ---
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 : 1950 Requested By: Sophia Wsahington Order Number: [id number] MD: Aneudy Masters Measurements Intervals Bonnie Rate: 59 P: -1 GA: 183 QRS: 2 QRSD: 114 T: 7 QT: 466 QTc: 462 Interpretive Statements Sinus rhythm Poor septal R wave progression Baseline wander in lead(s) II,III,aVR,aVL,aVF Compared to ECG 09/05/2019 19:31:46 No significant change was found Electronically Signed On 09-02-2020 10:42:12 CDT by Aneudy Masters [email or web address] <ELECTRONICALLY SIGNED> By: Aneudy Masters MD, [facility] 09/02/20 1042 1322 1322 Aneudy Masters MD, [facility] /EPI
--- NOTE | 2020-09-02 10:52 | EKG ---
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
--- NOTE | 2020-09-02 18:39 | NUR ---
ASSUMED PATIENT CARE AT 0700. A/O X4. VSS. PROGRESSING TOWARDS POC GOALS.
[2020-09-03 03:15] LABS: HEMATOCRIT 29.9 % (37.0-47.0); HEMOGLOBIN 9.7 gm/dL (12.0-15.0); MCHC 32.5 g/dL (28.0-37.0); RBC 3.61 mil/uL (4.20-5.00); RDW 15.1 % (10.5-14.5); WBC 3.6 thou/uL (4.0-11.0)
[2020-09-03 03:24] LABS: CALCIUM 9.3 mg/dL (8.5-10.1); CREATININE 1.8 mg/dL (0.6-1.0); MAGNESIUM 2.2 mg/dL (1.8-2.4); POTASSIUM 4.3 mmol/L (3.5-5.1)
[2020-09-03 04:31] VITALS: BP 117/76
[2020-09-03 09:03] VITALS: BP 166/89
[2020-09-03 09:40] LABS: % SATURATION 25 % (20-39); IRON 46 ug/dL (50-170); TIBC 184 ug/dL (250-450)
[2020-09-03 12:00] VITALS: BP 147/78
[2020-09-03 14:55] VITALS: BP 151/88
--- NOTE | 2020-09-03 18:34 | NUR ---
ASSESSMENT CHARTED - MEDS PER BARBARA CROWELL DIET AND FLUIDS. UP IN ROOM TO CHAIR AND TO THE BATHROOM WITH STBY ASSIST. ACCUCHECKS CHARTED - NO CO'S OF PAIN OR NAUSEA. IV FLUIDS CONTINUE ORDERED. PT WITH NO CO'S AT THE PRESENT TIME.
[2020-09-03 20:00] VITALS: BP 179/80
[2020-09-04] VITALS (7 sets, daily range): BP systolic 128–187; BP diastolic 49–89
[2020-09-04 03:53] LABS: HEMATOCRIT 28.1 % (37.0-47.0); HEMOGLOBIN 9.2 gm/dL (12.0-15.0); MCH 27.3 pg (26.0-34.0); MCHC 32.7 g/dL (28.0-37.0); MCV 83.4 fL (80.0-100.0); RBC 3.37 mil/uL (4.20-5.00); RDW 15.1 % (10.5-14.5); WBC 3.8 thou/uL (4.0-11.0)
[2020-09-04 04:06] LABS: CALCIUM 8.8 mg/dL (8.5-10.1); CREATININE 1.5 mg/dL (0.6-1.0); POTASSIUM 4.4 mmol/L (3.5-5.1)
--- NOTE | 2020-09-04 06:11 | NUR ---
PT DENIED ANY DIZZINESS DURING THE NIGHT. NO SYNCOPAL EPISODES. BP ELEVATED EARLIER IN THE SHIFT, BUT IMPROVED. PT WAS GIVEN SCHEDULED LATNUS AND SSI EMAR AT BEDTIME. AROUND 0045, PT NOTED TO BE CONFUSED WITH SOME SLURRED SPEECH. SHE C/O NAUSEA AND STATED SHE DID NOT FEEL WELL. PT ALSO DIAPHORETIC AT THIS TIME. VITAL SIGNS OBTAINED AND STABLE. HOWEVER, BLOOD SUGAR <20. 1 AMP D50 GIVEN. BG IMPROVED. SPEECH CLEARED AND ORIENTATION IMPROVED. RADHA MENDIOLA NP GEAR AND SPLINE GRINDER FOR HOSPITALIST WAS NOTIFIED OF HYPOGLYCEMIC EPISODE AND PT SYMPTOMS. ORDERS RECEIVED TO CHANGE SSI ORDER TO PREVENT REOCCURRANCE OF HYPOGLYCEMIA AT BEDTIME. PT ALSO ATE SNACK TO HELP MAINTAIN BLOOD SUGAR ABOVE 70. PT CONTINUES TO BE BACK AT BASELINE MENTATION. WILL CONTINUE TO MONITOR CLOSELY.
[2020-09-04] MEDS ORDERED: LISINOPRIL20 MG PO (15:03)
[2020-09-04] MEDS ORDERED: CARVEDILOL12.5 MG PO (15:03)
--- NOTE | 2020-09-04 17:45 | NUR ---
Patient to discharge home this evening. Patient reports she lives in apt alone with elevator. 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 She reports her dtr is working and unable to transport her home. She reports She does not have her walker present to ca home and get to her apt with a cab. Arranged [facility] to home at [phone]. Sp with [facility] care. They report patient is on services. Faxed referral for [facility] for resumption of services. No further needs.
--- NOTE | 2020-09-04 17:55 | NUR ---
RECEIVED THE PATIENT CONSCIOUS AND ORIENTED.ON ROOM AIR BREATHING SPONTANEOUSLY.NOT IN PAIN OR DISTRESS.ALL NEEDS ATTENDED.DISCHARGE PACKET GIVEN AND EVERYTHING EXPLAINED TO THE PATIENT.SUPERVISOR [employer] DEPARTMENT BOOKED WHEELCHAIR VAN FOR THE PATIENT TO BRING HER HOME.DISCHARGED PATIENT FROM THE HOSPITAL ON STABLE CONDITION.
== END 2020-09-04 18:00 | disposition home health service (06) | DRG 291 ==
LOC: ER 13:14 → 2N 16:53 → EROBS 16:53 → 2N 20:19
PROVIDERS: Internal Medicine; Nurse Practitioner Family; ADMIT Internal Medicine; ATTEND Internal Medicine
DX: I13.0 Hypertensive heart and chronic kidney disease with heart failure and stage 1 through stage 4 chronic kidney disease, or unspecified chronic kidney disease (principal); N17.0 Acute kidney failure with tubular necrosis; N30.00 Acute cystitis without hematuria; I95.1 Orthostatic hypotension; E86.0 Dehydration; I25.10 Atherosclerotic heart disease of native coronary artery without angina pectoris; E78.5 Hyperlipidemia, unspecified; E11.42 Type 2 diabetes mellitus with diabetic polyneuropathy; F32.9 Major depressive disorder, single episode, unspecified; E11.22 Type 2 diabetes mellitus with diabetic chronic kidney disease; G47.33 Obstructive sleep apnea (adult) (pediatric); J44.9 Chronic obstructive pulmonary disease, unspecified; E87.5 Hyperkalemia; N18.30 Chronic kidney disease, stage 3 unspecified; I50.9 Heart failure, unspecified; Z95.5 Presence of coronary angioplasty implant and graft; Z95.1 Presence of aortocoronary bypass graft; I25.2 Old myocardial infarction; Z90.49 Acquired absence of other specified parts of digestive tract; Z79.82 Long term (current) use of aspirin; Z79.899 Other long term (current) drug therapy; Z79.4 Long term (current) use of insulin; Z88.0 Allergy status to penicillin
CPT/HCPCS: 10081

== ENCOUNTER → 2021-01-16 | Outpatient (CLI) | payer OTHER ==
[~2021-01-16] MED LIST changes: +CARVEDILOL12.5 MG PO; +LISINOPRIL20 MG PO
== END ==
LOC: HYPER 15:09
PROVIDERS: ATTEND Emergency Medicine
DX: T81.31XD Disruption of external operation (surgical) wound, not elsewhere classified, subsequent encounter (principal); E11.622 Type 2 diabetes mellitus with other skin ulcer; L97.812 Non-pressure chronic ulcer of other part of right lower leg with fat layer exposed; E11.319 Type 2 diabetes mellitus with unspecified diabetic retinopathy without macular edema; E11.51 Type 2 diabetes mellitus with diabetic peripheral angiopathy without gangrene; E66.9 Obesity, unspecified; E78.5 Hyperlipidemia, unspecified; I11.0 Hypertensive heart disease with heart failure; I50.9 Heart failure, unspecified; I25.10 Atherosclerotic heart disease of native coronary artery without angina pectoris; I25.2 Old myocardial infarction; J45.909 Unspecified asthma, uncomplicated; F41.9 Anxiety disorder, unspecified; F32.9 Major depressive disorder, single episode, unspecified; Z79.4 Long term (current) use of insulin; Z87.891 Personal history of nicotine dependence; Z95.1 Presence of aortocoronary bypass graft; Z90.49 Acquired absence of other specified parts of digestive tract; Y83.8 Other surgical procedures as the cause of abnormal reaction of the patient, or of later complication, without mention of misadventure at the time of the procedure

== ENCOUNTER → 2021-02-06 | Outpatient (CLI) | payer OTHER | LOC: HYPER 14:11 | PROVIDERS: ATTEND Emergency Medicine | DX: E11.622 Type 2 diabetes mellitus with other skin ulcer (principal); L97.812 Non-pressure chronic ulcer of other part of right lower leg with fat layer exposed; T81.30XD Disruption of wound, unspecified, subsequent encounter; E11.51 Type 2 diabetes mellitus with diabetic peripheral angiopathy without gangrene; E11.319 Type 2 diabetes mellitus with unspecified diabetic retinopathy without macular edema; I25.10 Atherosclerotic heart disease of native coronary artery without angina pectoris; I11.0 Hypertensive heart disease with heart failure; I50.9 Heart failure, unspecified; E78.5 Hyperlipidemia, unspecified; I25.2 Old myocardial infarction; J45.909 Unspecified asthma, uncomplicated; F41.9 Anxiety disorder, unspecified; Z79.4 Long term (current) use of insulin; Z95.1 Presence of aortocoronary bypass graft; Z79.899 Other long term (current) drug therapy; Y83.8 Other surgical procedures as the cause of abnormal reaction of the patient, or of later complication, without mention of misadventure at the time of the procedure ==

== ENCOUNTER → 2021-03-22 | Outpatient (CLI) | payer OTHER | LOC: HYPER 09:42 | PROVIDERS: ATTEND Emergency Medicine | DX: T81.31XD Disruption of external operation (surgical) wound, not elsewhere classified, subsequent encounter (principal); E11.622 Type 2 diabetes mellitus with other skin ulcer; L97.812 Non-pressure chronic ulcer of other part of right lower leg with fat layer exposed; E11.51 Type 2 diabetes mellitus with diabetic peripheral angiopathy without gangrene; E11.319 Type 2 diabetes mellitus with unspecified diabetic retinopathy without macular edema; I25.10 Atherosclerotic heart disease of native coronary artery without angina pectoris; I11.0 Hypertensive heart disease with heart failure; I50.9 Heart failure, unspecified; E78.5 Hyperlipidemia, unspecified; E66.9 Obesity, unspecified; I25.2 Old myocardial infarction; J45.909 Unspecified asthma, uncomplicated; F41.9 Anxiety disorder, unspecified; Z79.4 Long term (current) use of insulin; Z95.1 Presence of aortocoronary bypass graft; Y83.8 Other surgical procedures as the cause of abnormal reaction of the patient, or of later complication, without mention of misadventure at the time of the procedure ==